=== PATIENT | female | born 1950 | race Hispanic/Latino ===

== ENCOUNTER 2017-02-10 07:04 | Day surgery (SDC) | payer MEDICARE ==
[2017-01-31 11:34] VITALS: BMI 23.6
[2017-02-10] MEDS ORDERED: Simethicone 40 mg/0.6 ml Liquid (30 ml) ONE (07:42)
[2017-02-10] MEDS ORDERED: Propofol 10 mg/ml Inj (20 ML) ONE (09:16)
[2017-02-10] MEDS ORDERED: Lidocaine 1% Inj (20ml) ONE (09:16)
[2017-02-10] MEDS ORDERED: Sodium Chloride 0.9% 1,000 ML IV SCH (09:45)
[2017-02-10 11:12] VITALS: BP 132/71; PULSE 52; RESP 18; TEMP 97.8; O2SAT 97
== END 2017-02-10 11:10 | disposition home or self-care (01) ==
LOC: ENDO 07:04
PROVIDERS: ATTEND Internal Medicine Gastroenterology
DX: K56.69 Other intestinal obstruction (principal); K28.9 Gastrojejunal ulcer, unspecified as acute or chronic, without hemorrhage or perforation
CPT/HCPCS: 43239; 43245; 88305; 88342; C1726; J2704; J7040 ×2

== ENCOUNTER 2017-04-11 14:56 | Inpatient (IN) | payer MEDICARE ==
[2017-04-11 15:40] VITALS: BMI 23.1
[2017-04-11] MEDS ORDERED: HYDROmorphone 1 mg/ml ISec ONE (15:43)
[2017-04-11] MEDS ORDERED: Sodium Chloride 0.9% 1,000 ML IV STA ×2 (15:45→21:03)
[2017-04-11] MEDS ORDERED: HYDROmorphone 1 mg/ml ISec IVP STA ×3 (15:45→20:10)
[2017-04-11 15:48] LABS: ADD MANUAL DIFF? NO
[2017-04-11 16:02] LABS: VENOUS BLOOD PH 7.33 (7.32-7.43)
[2017-04-11] MEDS ORDERED: HYDROmorphone 2 mg/ml ISec IVP STA (16:04)
[2017-04-11 16:07] LABS: BASO # 0.03 K/mm3 (0.0-2.0); BASO % 0.7 % (0.0-3.0); EOS # 0.1 (0.0-0.7); EOS % 2.3 % (1.5-5.0); GRAN # 2.85 (1.4-6.5); GRAN % 64.8 % (50.0-68.0); HEMATOCRIT 36.6 % (36.0-48.0); LYMPH % 23.5 % (22.0-35.0); MEAN CELL VOLUME 85.7 fL (80.0-105.0); MEAN CORPUSCULAR HEMOGLOBIN 27.2 pg (25.0-35.0); MEAN CORPUSCULAR HGB CONC 31.7 g/dl (31.0-37.0); MEAN PLATELET VOLUME 11.3 fl (7.0-11.0); MONO # 0.4 (0.1-0.6); MONO % 8.7 % (1.0-6.0); PLATELET COUNT 171 10^3/uL (120.0-450.0); RED CELL DISTRIBUTION WIDTH 16.6 % (11.5-14.5); WHITE BLOOD COUNT 4.4 10^3/ul (4.5-11.0)
--- NOTE | 2017-04-11 16:12 | ED PDOC ---
Arrival/HPI - General Chief Complaint: Abdominal Pain Time Seen by Provider: 04/11/17 15:01 Historian: Patient, Family - History of Present Illness Narrative History of Present Illness (Text): 04/11/17 20:19 Patient is a 67 yo female past medical history of gastric bypass presents to emergency department with history of sudden onset of epigastric/upper abdominal pain at approximately 8 this morning after eating serbian toast. She denies chest pain or shortness of breath. States pain radiates to her mid back. Denies pleuritic chest pain. Reports loose stools today. No bloody or dark stools. Denies fevers or chills. Pain is crampy, constant, progressively worse throughout the day. States she has not had an appetite, has only been able to drink liquids throughout the day. Past Medical History - Provider Review Nursing Documentation Reviewed: Yes - Tetanus Immunization Tetanus Immunization: Unknown - Reproductive Menopause: Yes - Cardiac Hx Pacemaker: No - Pulmonary Other/Comment: lung nodule, right lung, follows up every [address] young - Neurological Hx Paralysis: No - Hematological/Oncological Hx Blood Transfusions: No Hx Blood Transfusion Reaction: No - Musculoskeletal/Rheumatological Hx Musculoskeletal Disorders: Yes - Gastrointestinal Other/Comment: pt neal been following a liquid and baby food diet due to gastric ulcer as per dr jean. Pt had gastric bypass 2006, weighd 255 lbs, pt lost 100 lbs. has lost in the last 7 mfutso13s lbs and then. another 17, due to tx for gastric ulcer. pt needs to be on liquids and baby food for 2 months. pt needs to eat q2h - Psychiatric Hx Emotional Abuse: No Hx Physical Abuse: No Hx Substance Use: No - Surgical History Hx Gastric Bypass Surgery: Yes - Anesthesia Hx Anesthesia: Yes Hx Anesthesia Reactions: No Hx Malignant Hyperthermia: No - Suicidal Assessment Feels Threatened In Home Enviroment: No Family/Social History - Physician Review Nursing Documentation Reviewed: Yes Family/Social History: Unknown Family HX Smoking Status: Former Smoker Hx Alcohol Use: No Hx Substance Use: No Allergies/Home Meds Allergies/Adverse Reactions: Allergies hydromorphone HCl [From Dilaudid] Allergy (Severe, Verified 04/11/17 16:10) CHEST PRESSURE Home Medications: Home Meds Medication Instructions Recorded Confirmed ALPRAZolam [Xanax] 0.25 mg PO HS PRN 08/06/16 04/11/17 Cyanocobalamin (Vitamin B-12) 1 tab PO DAILY 08/06/16 04/11/17 [Vitamin B12] Lansoprazole [Prevacid] 30 mg PO BID 08/06/16 04/11/17 Multivitamin [One Daily] 1 tab PO DAILY 08/06/16 04/11/17 Cyanocobalamin [Vitamin B12 1000 1 ml SQ Q30D 12/12/16 04/11/17 mcg/ml Inj] Ferrous Sulfate [Emmanuel-Iron] 1 ml SL DAILY 12/12/16 04/11/17 oxyCODONE/Acetaminophen [Percocet 1 tab PO Q8H 12/12/16 04/11/17 5/325 mg Tab] Review of Systems - Review of Systems Constitutional: Fatigue. absent: Fevers Respiratory: absent: SOB, Cough Cardiovascular: absent: Chest Pain, Orthopnea, Syncope Gastrointestinal: Abdominal Pain, Diarrhea, Appetite Changes. absent: Constipation, Hematochezia, Hematemesis Genitourinary Female: absent: Dysuria, Frequency, Hematuria Musculoskeletal: Back Pain. absent: Neck Pain Skin: absent: Rash Neurological: absent: Headache, Dizziness, Focal Weakness Hemo/Lymphatic: absent: Easy Bleeding Physical Exam - Physical Exam Narrative Physical Exam (Text): Head: Atraumatic. Normocephalic. Eyes: PERRL. EOMI. Conjunctivae are not pale. ENT: Mucous membranes are dry. Oropharynx is clear and symmetric. Neck: Supple. Full ROM. No JVD. No lymphadenopathy. Cardiovascular: Regular rate. Regular rhythm. No murmurs, rubs, or gallops. Distal pulses are 2+ and symmetric. Pulmonary/Chest: No evidence of respiratory distress. Clear to auscultation bilaterally. No wheezing, rales or rhonchi. Abdominal: Soft and non-distended. Prior surgical scars noted. Moderate epigastric pain noted on palpation. No puslatile masses. Back: No CVA tenderness. No paraspinal tenderness. Extremities: No edema. No cyanosis. No clubbing. Full range of motion in all extremities. No calf tenderness. Intact distal pulses. Skin: Skin is pale. Neurological: Alert, awake, and oriented to person, place, time, and situation. Normal speech. Motor and sensory exam intact. Psychiatric: Good eye contact. Normal interaction, affect, and behavior. Vital Signs Reviewed: Yes Vital Signs Temp Pulse Resp BP Pulse Ox 04/11/17 22:00 53 L 04/11/17 21:00 55 L 18 150/75 100 04/11/17 19:00 51 L 18 145/69 100 04/11/17 17:00 53 L 18 133/65 97 04/11/17 15:11 97.9 F 56 L 18 152/61 H 100 Temperature: Afebrile Appearance: Positive for: Uncomfortable Pain Distress: Moderate Medical Decision Making ED Course and Treatment: Patient seen upon arrival. Family present in emergency department supplements history. On exam she has moderate/severe upper abdominal pain. No pulsatile masses. Prior CT chest and CT abdomen/pelvis reviewed. Given her history of gastric bypass and acute onset of pain, initial differential diagnosis included bowel obstruction/perforation. Surgery consulted immediately upon arrival and case reviewed with surgical garment inspector. Family requests Dr. Montoya for surgery. Gastroenterology also consulted. IV pain medication and iv fluids administered. Patient adamant that she has had dialudid with NO ADVERSE EFFECT despite record indicating allergy. THis was reviewed multiple times prior to administration. She received Dilaudid in ED with no adverse effect. EXAM: CT Abdomen and Pelvis With Intravenous Contrast FINDINGS: LOWER THORAX: No infiltrate seen in the lung bases. ABDOMEN: LIVER: Area of low density in the liver, abutting the falciform ligament, most compatible with focal fatty infiltration. GALLBLADDER AND BILE DUCTS: Diffuse biliary ductal dilatation. The common bile duct measures up to 1.1 cm in diameter, and there is also mild intrahepatic biliary ductal dilatation. No radiopaque common bile duct stones are visualized. Cholecystectomy clips are noted PANCREAS: No CT evidence of acute pancreatitis. SPLEEN: No acute abnormality of the spleen identified. ADRENALS: No acute abnormality of the adrenal glands identified. KIDNEYS AND URETERS: Tiny, nonobstructing left renal stone. No acute abnormality of the kidneys identified. STOMACH AND BOWEL: Findings highly suspicious for a proximal small bowel obstruction. There are multiple dilated small bowel loops seen, and there are multiple normal caliber to decompressed distal small bowel loops visualized. Transition point is seen, within a small bowel loop in the abdomen centrally, images 74-84 of series 2, where there is a change in caliber of the small bowel , followed by multiple normal caliber to decompressed small bowel loops. It is located at/near the the jejunojejunal anastomosis. No definite mass is identified at the transition point. There is no evidence of focal enteritis of the transition point. Postsurgical changes involving the stomach and left abdomen, with an appearance most compatible with previous gastric bypass surgery. No acute abnormality of the gastric pouch or excluded portion of the stomach identified. No acute abnormality of the colon identified. APPENDIX: Appendix is seen, and is within normal limits in appearance. PELVIS: BLADDER: No acute abnormality of the bladder identified. REPRODUCTIVE: Uterus is surgically absent. No evidence of large adnexal masses. ABDOMEN and PELVIS: INTRAPERITONEAL SPACE: Small amount of free fluid in the abdomen and pelvis. No evidence of free air. BONES/JOINTS: Bony structures appear demineralized. SOFT TISSUES: No acute abnormality of the visualized soft tissues is seen. VASCULATURE: No evidence of abdominal aortic aneurysm. No evidence of periaortic hemorrhage. LYMPH NODES: No evidence of diffuse lymphadenopathy. IMPRESSION: - Findings highly suspicious for a small bowel obstruction. Please see above for a full description. There is evidence of prior gastric bypass surgery. - Small amount of free fluid. - Diffuse biliary ductal dilatation. This may be related to the post cholecystectomy state. Recommend correlation with LFTs for laboratory evidence of biliary obstruction, and further workup as indicated. - See above for remaining findings. Dictated and Authenticated by: Elmira Oliver MD Surgery updated with patients exam as well as CT findings. Case discussed with diamante Hargrove for surgery. On re-exam, pain persistent but improved. Denies nausea. Given persistent pain requested emergent surgical evaluation and serial exams. IV fluids continued. Patient admitted for bowel obstruction. 04/28/17 23:14 - Lab Interpretations Lab Results: 04/11/17 15:35 04/11/17 15:35 Lab Results 04/11/17 15:53: pO2 33, VBG pH 7.33, VBG pCO2 50.0, VBG HCO3 26.4, VBG Total CO2 27.9, VBG O2 Sat (Calc) 65.9 H, VBG Base Excess 0.0, VBG Potassium 4.5, Glucose 99, Lactate 0.8, FiO2 21.0, Sodium 135.0, Chloride 109.0 H, Venous Blood Potassium 4.5 04/11/17 15:35: PT 10.6, INR 0.98, APTT 26.8 04/11/17 15:35: WBC 4.4 L, RBC 4.27, Hgb 11.6 L, Hct 36.6, MCV 85.7, MCH 27.2, MCHC 31.7, RDW 16.6 H, Plt Count 171, MPV 11.3 H, Gran % 64.8, Lymph % (Auto) 23.5, [place] % (Auto) 8.7 H, Eos % (Auto) 2.3, Baso % (Auto) 0.7, Gran # 2.85, Lymph # 1.0 L, [place] # 0.4, Eos # 0.1, Baso # 0.03 04/11/17 15:35: Sodium 137, Potassium 4.6, Chloride 101, Carbon Dioxide 29, Anion Gap 12, BUN 9, Creatinine 0.7, Est GFR ( Amer) > 60, Est GFR (Non- Af Amer) > 60, Random Glucose 98, Calcium 9.0, Total Bilirubin 0.6, AST 37, ALT 42, Alkaline Phosphatase 104, Lactate Dehydrogenase 575, Total Creatine Kinase 51, Troponin I < 0.01, Total Protein 6.5, Albumin 3.9, Globulin 2.7, Albumin/ Globulin Ratio 1.4, Amylase 82, Lipase 92 - RAD Interpretation Radiology Orders: 04/11/17 15:45 CHEST PORTABLE [RAD] Stat 04/11/17 16:51 ABD PELVIS PO & IV CONTRAST [CT] Stat - Medication Orders Current Medication Orders: Discontinued Medications Acetaminophen (Tylenol 325mg Tab) 650 mg PO Q6H PRN PRN Reason: Fever >100.4 F Last Admin: 04/12/17 22:39 Dose: 650 mg Famotidine (Pepcid) 20 mg IVP STAT STA Stop: 04/11/17 16:23 Last Admin: 04/11/17 20:15 Dose: 20 mg Hydromorphone HCl (Dilaudid) Confirm Administered Dose 1 mg .ROUTE .STK-MED ONE Stop: 04/11/17 15:44 Last Admin: 04/11/17 15:53 Dose: Hydromorphone HCl (Dilaudid) 1 mg IVP STAT STA Stop: 04/11/17 15:46 Last Admin: 04/11/17 15:52 Dose: 1 mg Re-Assess: MISHA Pain Assessment Document 04/11/17 16:52 JOL (Rec: 04/11/17 18:56 [id number]) Pain Reassessment Is this a pain reassessment? Yes Sleep Is patient sleeping during reassessment? No Presence of Pain Presence of Pain Yes Hydromorphone HCl (Dilaudid) 2 mg IVP STAT STA Stop: 04/11/17 16:05 Last Admin: 04/11/17 16:11 Dose: 2 mg Re-Assess: [facility] Pain Assessment Document 04/11/17 17:11 JO (Rec: 04/11/17 18:56 [id number]) Pain Reassessment Is this a pain reassessment? Yes Sleep Is patient sleeping during reassessment? No Presence of Pain Presence of Pain Yes Hydromorphone HCl (Dilaudid) 1 mg IVP STAT STA Stop: 04/11/17 17:54 Last Admin: 04/11/17 18:05 Dose: 1 mg Re-Assess: [facility] Pain Assessment Document 04/11/17 19:05 JO (Rec: 04/11/17 20:15 [id number]) Pain Reassessment Is this a pain reassessment? Yes Sleep Is patient sleeping during reassessment? No Presence of Pain Presence of Pain Yes Hydromorphone HCl (Dilaudid) 1 mg IVP STAT STA Stop: 04/11/17 20:11 Last Admin: 04/11/17 20:15 Dose: 1 mg Re-Assess: [facility] Pain Assessment Document 04/11/17 21:15 JO (Rec: 04/11/17 21:16 [id number]) Pain Reassessment Is this a pain reassessment? Yes Sleep Is patient sleeping during reassessment? No Presence of Pain Presence of Pain Yes Hydromorphone HCl (Dilaudid) 1 mg IVP Q4H PRN PRN Reason: Pain, moderate (4-7) Last Admin: 04/13/17 22:37 Dose: 1 mg Sodium Chloride (Sodium Chloride 0.9%) 1,000 mls @ 1,000 mls/hr IV .Q1H STA Stop: 04/11/17 16:44 Last Admin: 04/11/17 15:53 Dose: 1,000 mls/hr Sodium Chloride (Sodium Chloride 0.9%) 1,000 mls @ 100 mls/hr IV .Q10H [facility] Last Admin: 04/13/17 05:48 Dose: 100 mls/hr Sodium Chloride (Sodium Chloride 0.9%) 1,000 mls @ 1,000 mls/hr IV .Q1H STA Stop: 04/11/17 22:02 Last Admin: 04/11/17 21:28 Dose: Iohexol (Omnipaque 240 (50 Ml)) Confirm Administered Dose 50 ml .ROUTE .STK-MED ONE Stop: 04/11/17 16:53 Iohexol (Omnipaque 350 100 Ml) Confirm Administered Dose 350 mg .ROUTE .STK-MED ONE Stop: 04/11/17 19:00 Metronidazole (Flagyl) 250 mg PO Q6H VI PRN Reason: Protocol Last Admin: 04/14/17 10:00 Dose: 250 mg Ondansetron HCl (Zofran Inj) 4 mg IVP Q4H PRN PRN Reason: Nausea/Vomiting Pantoprazole Sodium (Protonix Inj) 40 mg IVP STAT STA Stop: 04/11/17 21:17 Last Admin: 04/11/17 21:51 Dose: 40 mg Pantoprazole Sodium (Protonix Inj) 40 mg IVP DAILY [facility] Last Admin: 04/14/17 09:59 Dose: 40 mg Disposition/Present on Arrival - Present on Arrival Any Indicators Present on Arrival: No History of DVT/PE: No History of Uncontrolled Diabetes: No Urinary Catheter: No History of Decub. Ulcer: No History Surgical Site Infection Following: None - Disposition Have Diagnosis and Disposition been Completed?: Yes Diagnosis: Bowel obstruction Disposition: HOSPITALIZED Disposition Time: 16:00 Patient Plan: Admission Condition: SERIOUS
[2017-04-11 16:13] LABS: ALB/GLOB RATIO 1.4 (1.1-1.8); ALKALINE PHOSPHATASE 104 U/L (38-133); ALT/SGPT 42 U/L (7-56); AMYLASE 82 U/L (35-125); AST/SGOT 37 U/L (15-39); BILIRUBIN,TOTAL 0.6 mg/dL (0.2-1.3); BLOOD UREA NITROGEN 9 mg/dL (7-21); CARBON DIOXIDE 29 mmol/L (21-33); CHLORIDE 101 mmol/L (98-107); GFR AFRICAN-AMERICAN > 60; GLUCOSE,RANDOM 98 mg/dL (70-110); LIPASE 92 U/L (23-300); POTASSIUM 4.6 mmol/L (3.6-5.0); SODIUM 137 mmol/L (132-148); TOTAL PROTEIN 6.5 g/dL (5.8-8.3)
[2017-04-11 16:15] LABS: INR 0.98 (0.93-1.08); PARTIAL THROMBOPLASTIN TIME 26.8 Seconds (23.7-30.8)
[2017-04-11 16:26] LABS: TROPONIN I < 0.01 ng/mL
[2017-04-11] MEDS ORDERED: Iohexol 240 (50 ml) ONE (16:52)
--- NOTE | 2017-04-11 17:12 | CP.PCM.CON ---
History of Present Illness - History of Present Illness History of Present Illness: Gen Sx: Dr Stratton CC: epigastric pain Pt is a 67F well known to surgical service. Pt has history of gastric bypass w / cholecystectomy in 2006. 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 She has received multiple endoscopic dilatations, and most recently had a laparoscopic resection of the ulcer segments of her jejuno-jejunal anastamosis. This surgery was done at [facility] by her original bariatric surgeon. Pt presents today because shortly after eating a piece of thai toast, she developed sudden onset epigastric pain, 10/10, radiating through to the back. Pain has been persistent since initial onset and has not subsided. She denies any nausea or vomiting, but feels if she tried to take even a sip of water she would vomit. Has been having bowel movements regularly though she admits to 3 episodes of diarrhea within past 24 hours. Pt denies any recent EtOH intake. She has been eating well since her operation. No other acute complaints. Review of Systems - Review of Systems All systems: reviewed and no additional remarkable complaints except (as per hpi ) Past Patient History - Tetanus Immunizations Tetanus Immunization: Unknown - Past Social History Smoking Status: Former Smoker - CARDIAC Hx Pacemaker: No - PULMONARY Other/Comment: lung nodule, right lung, follows up every [address] young - NEUROLOGICAL Hx Paralysis: No - HEMATOLOGICAL/ONCOLOGICAL Hx Blood Transfusions: No Hx Blood Transfusion Reaction: No - MUSCULOSKELETAL/RHEUMATOLOGICAL Hx Musculoskeletal Disorders: Yes - GASTROINTESTINAL Other/Comment: pt neal been following a liquid and baby food diet due to gastric ulcer as per dr zamarripa. Pt had gastric bypass 2006, weighd 255 lbs, pt lost 100 lbs. has lost in the last 7 eepoep21h lbs and then. another 17, due to tx for gastric ulcer. pt needs to be on liquids and baby food for 2 months. pt needs to eat q2h - PSYCHIATRIC Hx Emotional Abuse: No Hx Physical Abuse: No Hx Substance Use: No - SURGICAL HISTORY Hx Gastric Bypass Surgery: Yes - ANESTHESIA Hx Anesthesia: Yes Hx Anesthesia Reactions: No Hx Malignant Hyperthermia: No Meds Allergies/Adverse Reactions: Allergies Allergy/AdvReac Type Severity Reaction Status Date / Time hydromorphone HCl Allergy Severe CHEST Verified 04/11/17 16:10 [From Dilaudid] PRESSURE Physical Exam - Constitutional Appears: Non-toxic, No Acute Distress - Head Exam Head Exam: NORMOCEPHALIC - Eye Exam Eye Exam: absent: Scleral icterus - ENT Exam ENT Exam: Mucous Membranes Moist - Respiratory Exam Respiratory Exam: NORMAL BREATHING PATTERN. absent: Accessory Muscle Use, Respiratory Distress - Cardiovascular Exam Cardiovascular Exam: REGULAR RHYTHM. absent: Tachycardia - GI/Abdominal Exam GI & Abdominal Exam: Soft, Tenderness (epigastric). absent: Distended, Firm, Guarding, Hernia, Rigid Additional comments: laparoscopy incisions healing well - Extremities Exam Extremities exam: Negative for: pedal edema - Back Exam Back exam: absent: CVA tenderness (L), CVA tenderness (R) - Neurological Exam Neurological exam: Alert, Oriented x3 - Psychiatric Exam Psychiatric exam: Normal Affect, Normal Mood - Skin Skin Exam: Normal Color, Warm Results - Vital Signs Recent Vital Signs: Last Vital Signs Temp 97.9 F 04/11/17 15:11 Pulse 56 L 04/11/17 15:11 Resp 18 04/11/17 15:11 BP 152/61 H 04/11/17 15:11 Pulse Ox 100 04/11/17 15:11 - Labs Result Diagrams: 04/11/17 15:35 04/11/17 15:35 Labs: Laboratory Results - last 24 hr 04/11/17 04/11/17 04/11/17 15:35 15:35 15:35 WBC 4.4 L RBC 4.27 Hgb 11.6 L Hct 36.6 MCV 85.7 MCH 27.2 MCHC 31.7 RDW 16.6 H Plt Count 171 MPV 11.3 H Gran % 64.8 Lymph % (Auto) 23.5 [place] % (Auto) 8.7 H Eos % (Auto) 2.3 Baso % (Auto) 0.7 Gran # 2.85 Lymph # 1.0 L [place] # 0.4 Eos # 0.1 Baso # 0.03 PT 10.6 INR 0.98 APTT 26.8 pO2 VBG pH VBG pCO2 VBG HCO3 VBG Total CO2 VBG O2 Sat (Calc) VBG Base Excess VBG Potassium Glucose Lactate FiO2 Sodium 137 Potassium 4.6 Chloride 101 Carbon Dioxide 29 Anion Gap 12 BUN 9 Creatinine 0.7 Est GFR ( Amer) > 60 Est GFR (Non-Af Amer) > 60 Random Glucose 98 Calcium 9.0 Total Bilirubin 0.6 AST 37 ALT 42 Alkaline Phosphatase 104 Lactate Dehydrogenase 575 Total Creatine Kinase 51 Troponin I < 0.01 Total Protein 6.5 Albumin 3.9 Globulin 2.7 Albumin/Globulin Ratio 1.4 Amylase 82 Lipase 92 Venous Blood Potassium 04/11/17 15:53 WBC RBC Hgb Hct MCV MCH MCHC RDW Plt Count MPV Gran % Lymph % (Auto) [place] % (Auto) Eos % (Auto) Baso % (Auto) Gran # Lymph # [place] # Eos # Baso # PT INR APTT pO2 33 VBG pH 7.33 VBG pCO2 50.0 VBG HCO3 26.4 VBG Total CO2 27.9 VBG O2 Sat (Calc) 65.9 H VBG Base Excess 0.0 VBG Potassium 4.5 Glucose 99 Lactate 0.8 FiO2 21.0 Sodium 135.0 Potassium Chloride 109.0 H Carbon Dioxide Anion Gap BUN Creatinine Est GFR ( Amer) Est GFR (Non-Af Amer) Random Glucose Calcium Total Bilirubin AST ALT Alkaline Phosphatase Lactate Dehydrogenase Total Creatine Kinase Troponin I Total Protein Albumin Globulin Albumin/Globulin Ratio Amylase Lipase Venous Blood Potassium 4.5 Assessment & Plan - Assessment and Plan (Free Text) Assessment: 67F w/ gastric bypass now presents with epigastric pain Plan: r/o cardiac etiology NPO Iv fluids CXR shows no acute free air recommend CT abd/pel will f/u results recc consult GI Dr Zamarripa who is familiar with pt will cont to follow d/w Dr Chayito Childress, , PGY2 - Date & Time Date: 04/11/17 Time: 17:16
[2017-04-11] MEDS ORDERED: Iohexol 350 MG/100 ML VIAL ONE (18:59)
[2017-04-11] MEDS: Sodium Chloride 0.9% 1,000 ML IV SCH (21:00)
--- NOTE | 2017-04-11 21:05 | CT ---
EXAM: CT Abdomen and Pelvis With Intravenous Contrast CLINICAL HISTORY: 67 years old, female; Pain; Abdominal pain; Localized; Upper; Prior surgery; Surgery type: Gastric bypass; Additional info: HX of gastric bypass, upper abdominal pain TECHNIQUE: Axial computed tomography images of the abdomen and pelvis with intravenous contrast. This CT exam was performed using one or more of the following dose reduction techniques: automated exposure control, adjustment of the mA and/or kV according to patient size, and/or use of iterative reconstruction technique. Coronal and sagittal reformatted images were created and reviewed. CONTRAST: 100 mL of OMNIPAQUE administered intravenously. EXAM DATE/TIME: 04/11/2017 4:51 PM COMPARISON: Prior CT abdomen and pelvis of 08/15/2016 FINDINGS: LOWER THORAX: No infiltrate seen in the lung bases. ABDOMEN: LIVER: Area of low density in the liver, abutting the falciform ligament, most compatible with focal fatty infiltration. GALLBLADDER AND BILE DUCTS: Diffuse biliary ductal dilatation. The common bile duct measures up to 1.1 cm in diameter, and there is also mild intrahepatic biliary ductal dilatation. No radiopaque common bile duct stones are visualized. Cholecystectomy clips are noted PANCREAS: No CT evidence of acute pancreatitis. SPLEEN: No acute abnormality of the spleen identified. ADRENALS: No acute abnormality of the adrenal glands identified. KIDNEYS AND URETERS: Tiny, nonobstructing left renal stone. No acute abnormality of the kidneys identified. STOMACH AND BOWEL: Findings highly suspicious for a proximal small bowel obstruction. There are multiple dilated small bowel loops seen, and there are multiple normal caliber to decompressed distal small bowel loops visualized. Transition point is seen, within a small bowel loop in the abdomen centrally, images 74-84 of series 2, where there is a change in caliber of the small bowel, followed by multiple normal caliber to decompressed small bowel loops. It is located at/near the the jejunojejunal anastomosis. No definite mass is identified at the transition point. There is no evidence of focal enteritis of the transition point. Postsurgical changes involving the stomach and left abdomen, with an appearance most compatible with previous gastric bypass surgery. No acute abnormality of the gastric pouch or excluded portion of the stomach identified. No acute abnormality of the colon identified. APPENDIX: Appendix is seen, and is within normal limits in appearance. PELVIS: BLADDER: No acute abnormality of the bladder identified. REPRODUCTIVE: Uterus is surgically absent. No evidence of large adnexal masses. ABDOMEN and PELVIS: INTRAPERITONEAL SPACE: Small amount of free fluid in the abdomen and pelvis. No evidence of free air. BONES/JOINTS: Bony structures appear demineralized. SOFT TISSUES: No acute abnormality of the visualized soft tissues is seen. VASCULATURE: No evidence of abdominal aortic aneurysm. No evidence of periaortic hemorrhage. LYMPH NODES: No evidence of diffuse lymphadenopathy. IMPRESSION: - Findings highly suspicious for a small bowel obstruction. Please see above for a full description. There is evidence of prior gastric bypass surgery. - Small amount of free fluid. - Diffuse biliary ductal dilatation. This may be related to the post cholecystectomy state. Recommend correlation with LFTs for laboratory evidence of biliary obstruction, and further workup as indicated. - See above for remaining findings.
--- NOTE | 2017-04-11 21:53 | CARD ---
APPROVED REPORT EKG Measurement Heart [id number] MD [id number] <Conclusion> Sinus bradycardia Otherwise normal ECG
--- NOTE | 2017-04-11 23:22 | CON ---
DATE: 04/11/2017 REASON FOR CONSULTATION: Abdominal pain. HISTORY OF PRESENT ILLNESS: This 67-year-old patient was earlier seen in the Emergency Room. Discus sed with the patient's family and also with Dr. Thompson, the ER physician. This patient had a history of gastric bypass about a month ago, had revision of the anastomosis done. 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 The patient had repeated dilations done in the pas t and was evaluated by the bariatric surgeon and had revision of these anastomotic areas done. As pe r the patient, she was doing very good for the last month. She yesterday had a tuna sandwich and aft er that she had developed diarrhea a few episodes and also epigastric pain, sometimes radiating to th e back. Feeling nauseous, but did not throw up. No bleeding per rectum. No fever. The patient was improving, was getting better, but today, she had Hungarian toast. After that, the worsening of the pa in happened. She came to the Emergency Room. The patient at the time of examination, the patient di d receive some pain medication. The patient was comfortable on examination. PAST MEDICAL HISTORY: Positive for status post cholecystectomy and history of gastric bypass. SOCIAL HISTORY: Denies smoking, no alcohol. REVIEW OF SYSTEMS: Positive as above. Other systems reviewed and negative. SOCIAL HISTORY: She was an ex-smoker. Denies alcohol use. PHYSICAL EXAMINATION: VITAL SIGNS: Pulse 56, blood pressure 152/61, respirations 18, and O2 saturation 100%. HEENT: Atraumatic, anicteric. NECK: Supple. HEART: S1, S2 heard. LUNGS: Bilateral air entry present. ABDOMEN: Soft. There is tenderness present in the epigastric area. No rebound or guarding. EXTREMITIES: No edema. No cyanosis. NEUROLOGIC: Alert, oriented. Moves all the extremities. No focal deficit. LABORATORY DATA: Hemoglobin 11.6, hematocrit 36.6, WBC 4.4, platelets 171. Chemistry unremarkable. IMPRESSION: This 67-year-old patient who about a month ago had a revision of these bariatric surgery , gastric gastrojejunal anastomosis revision. The patient did have ulcers with stricture at the anas tomosis. The patient was doing well until this episode. Rule out small-bowel obstruction, rule out gastroenteritis. Would recommend a CT scan of the abdomen and pelvis with p.o. contrast. We will se nd stool for culture. We will consider empiric antibiotic coverage. The patient will have a surgica l evaluation. Close surgical monitoring. Hydration. Thank you very much for allowing us to participate in the care of the patient. ADDENDUM: I did discuss with the ER physician, Dr. Thompson. The CT was reviewed suggestive of small-bow el obstruction. The patient planned to be evaluated by Dr. Josue garcia and needs close monitoring . I informed the floor that because she is on the pain medication if there is any concern, the nurse was advised to discuss with the surgical team. Thank you very much for allowing us to participate in the care of the patient. Jackie Zamarripa MD cc: [id number] TT: 04/11/2017 23:21:33 Confirmation # [id number] Dictation # [id number] aury
[2017-04-11] MEDS: HYDROmorphone 1 mg/ml ISec IVP PRN (23:36)
[2017-04-11 23:48] LABS: VENOUS BLOOD GAS BASE EXCESS 2.2 mmol/L (0.0-2.0); VENOUS BLOOD PH 7.34 (7.32-7.43)
[2017-04-12] MEDS: HYDROmorphone 1 mg/ml ISec IVP PRN ×5 (04:07→23:11)
--- NOTE | 2017-04-12 06:35 | CP.PCM.PN ---
Subjective - Date & Time of Evaluation Date of Evaluation: 04/12/17 Time of Evaluation: 07:10 - Subjective Subjective: Pt s/e at bedside this AM. Pain is feeling improved since yesterday with no nausea, vomiting, diarrhea, or fevers. Patient states that she feels like she needs to have a BM but is not able to pass anything. Encouraged her not to use great effort to try to pass the stool and encouraged ambulation Objective - Vital Signs/Intake and Output Vital Signs (last 24 hours): Temp Pulse Resp BP Pulse Ox 97.9 F 55 L 18 150/75 100 04/11/17 15:11 04/11/17 21:00 04/11/17 21:00 04/11/17 21:00 04/11/17 21:00 Intake and Output: 04/11/17 04/12/17 18:59 06:59 Intake Total 0 Output Total 400 Balance -400 - Medications Medications: Current Medications Hydromorphone HCl (Dilaudid) 1 mg IVP Q4H PRN PRN Reason: Pain, moderate (4-7) Last Admin: 04/12/17 04:07 Dose: 1 mg Sodium Chloride (Sodium Chloride 0.9%) 1,000 mls @ 100 mls/hr IV .Q10H VI Last Admin: 04/11/17 21:00 Dose: 100 mls/hr Ondansetron HCl (Zofran Inj) 4 mg IVP Q4H PRN PRN Reason: Nausea/Vomiting Pantoprazole Sodium (Protonix Inj) 40 mg IVP DAILY VI - Labs Labs: PT 10.6 Seconds (9.9-11.8) 04/11/17 15:35 INR 0.98 (0.93-1.08) 04/11/17 15:35 APTT 26.8 Seconds (23.7-30.8) 04/11/17 15:35 - Constitutional Appears: Well, Non-toxic, No Acute Distress - Head Exam Head Exam: ATRAUMATIC, NORMOCEPHALIC - Eye Exam Eye Exam: EOMI, Normal appearance. absent: Conjunctival injection, Scleral icterus - ENT Exam ENT Exam: Mucous Membranes Moist, Normal Oropharynx - Neck Exam Neck Exam: Full ROM - Respiratory Exam Respiratory Exam: NORMAL BREATHING PATTERN. absent: Accessory Muscle Use, Respiratory Distress - Cardiovascular Exam Cardiovascular Exam: RRR - GI/Abdominal Exam GI & Abdominal Exam: Soft, Tenderness (moderate tenderness in the upper quadrants BL and epigastrium ). absent: Distended - Extremities Exam Extremities Exam: absent: Calf Tenderness, Pedal Edema, Tenderness - Neurological Exam Neurological Exam: Alert, Awake, Oriented x3 - Psychiatric Exam Psychiatric exam: Normal Affect, Normal Mood - Skin Skin Exam: Dry, Intact, Normal Color, Warm Assessment and Plan - Assessment and Plan (Free Text) Assessment: 67F with PSH including Rsoa-en-y gastric bypass 10 years ago with 8 months of peptic/marginal ulcers and stricture at jejunojejunal anastamosis refractory to multiple dilations who is 3 week s/p laparoscopic revision of jejunojejunal junction at [facility] who presented to the ED last night for severe epigastric abdominal pain that radiates to the right lower back after eating toast CT: proximal SBO with multiple dilated small bowel loops with distal decompression with transition point near the anastamosis. Fecalization of Small bowel contents proximal to anastamosis. No free air or signs of anastamotic leak , volvulus, or internal hernia patient clinically doing well Abdominal exam soft, non-distended Lactic acid WNL, AM labs stable UA positive for small leukocyte esterase and 5-10 WBC, no blood Plan: f/u abdominal flat plate XR this am continue NPO, may advance to CLD if abdominal flat plate is unconcerning and if she has return of Bowel movements Continue analgesia f/u C. diff stool, urine culture No antibiotics at this time Will consider NGT placement if nausea and vomiting but try to avoid d/t aberrant anatomy and recent surgery NS @100cc/h F/u GI recs Discussed with Dr. Josue Ocampo, PGY1
[2017-04-12 07:30] LABS: URINE BILIRUBIN NEGATIVE (NEGATIVE); URINE BLOOD NEGATIVE (NEGATIVE); URINE GLUCOSE (UA) NEGATIVE (NEGATIVE); URINE KETONE NEGATIVE (NEGATIVE); URINE LEUKOCYTE ESTERASE SMALL Leu/uL (NEGATIVE); URINE PROTEIN NEGATIVE mg/dL (<30 mg/dL); URINE UROBILINOGEN 0.2 E.U./dL (<1 E.U./dL)
[2017-04-12 07:31] LABS: URINE APPEARANCE CLEAR (CLEAR); URINE COLOR YELLOW (YELLOW)
[2017-04-12 07:44] LABS: URINE BACTERIA FEW (NEG); URINE EPITHELIAL CELLS 0 - 2 /hpf (0-5); URINE RBC NEGATIVE /hpf (0-2)
[2017-04-12 09:03] LABS: ADD MANUAL DIFF? NO
[2017-04-12 09:09] LABS: BASO # 0.03 K/mm3 (0.0-2.0); BASO % 0.9 % (0.0-3.0); EOS # 0.1 (0.0-0.7); EOS % 3.6 % (1.5-5.0); GRAN # 2.21 (1.4-6.5); GRAN % 65.9 % (50.0-68.0); HEMATOCRIT 34.6 % (36.0-48.0); LYMPH # 0.7 (1.2-3.4); LYMPH % 21.2 % (22.0-35.0); MEAN CELL VOLUME 86.3 fL (80.0-105.0); MEAN CORPUSCULAR HEMOGLOBIN 27.4 pg (25.0-35.0); MEAN CORPUSCULAR HGB CONC 31.8 g/dl (31.0-37.0); MEAN PLATELET VOLUME 11.3 fl (7.0-11.0); MONO # 0.3 (0.1-0.6); MONO % 8.4 % (1.0-6.0); PLATELET COUNT 145 10^3/uL (120.0-450.0); RED CELL DISTRIBUTION WIDTH 16.7 % (11.5-14.5); WHITE BLOOD COUNT 3.4 10^3/ul (4.5-11.0)
[2017-04-12 09:33] LABS: ALB/GLOB RATIO 1.5 (1.1-1.8); ALKALINE PHOSPHATASE 98 U/L (38-133); ALT/SGPT 43 U/L (7-56); AST/SGOT 38 U/L (15-39); BILIRUBIN,TOTAL 0.6 mg/dL (0.2-1.3); BLOOD UREA NITROGEN 8 mg/dL (7-21); CALCIUM 8.7 mg/dL (8.4-10.5); CARBON DIOXIDE 28 mmol/L (21-33); CHLORIDE 105 mmol/L (98-107); GFR AFRICAN-AMERICAN > 60; GLUCOSE,RANDOM 90 mg/dL (70-110); POTASSIUM 4.4 mmol/L (3.6-5.0); SODIUM 137 mmol/L (132-148); TOTAL PROTEIN 5.7 g/dL (5.8-8.3)
[2017-04-12] MEDS: Sodium Chloride 0.9% 1,000 ML IV SCH ×3 (11:54→21:03)
--- NOTE | 2017-04-12 12:17 | RAD ---
HISTORY: upper abdominal pain COMPARISON: 02/19/2017 FINDINGS: LUNGS: No active pulmonary disease. Calcified granuloma right upper lobe. PLEURA: No significant pleural effusion identified, no pneumothorax apparent. CARDIOVASCULAR: Normal. OSSEOUS STRUCTURES: No significant abnormalities. VISUALIZED UPPER ABDOMEN: Normal. OTHER FINDINGS: None. IMPRESSION: No active disease.
--- NOTE | 2017-04-12 17:58 | RAD ---
HISTORY: re-eval for SBO/perforation COMPARISON: CT abdomen/ pelvis 04/11/2017 FINDINGS: BOWEL: No abnormally dilated small bowel loops. Oral contrast seen within small bowel on CT examination of previous day is now seen within the left colon. No hepatic or splenic enlargement. Status post cholecystectomy. No masses or abnormal intra-abdominal calcifications. BONES: Normal. OTHER FINDINGS: None. IMPRESSION: Unremarkable abdominal bowel gas pattern. No evidence of small-bowel obstruction.
--- NOTE | 2017-04-12 20:57 | HP ---
HISTORY OF PRESENT ILLNESS: The patient is a 67-year-old who was seen by me in the office on afternoon when she came for her regular checkup; she was in good health. She stated on her way shonna logan she brought 1 tuna fish sandwich from [facility]. Her and her grandson ate the same thing but, after a couple of hours, she started to have abdominal discomfort, cramping pain, nausea, vomiting, diarrhe a. She threw up all night and yesterday morning. She made herself Lebanese toast and after she ate sh desmond started to have significant abdominal pain. She called her surgeon who recently had revision of he r gastric bypass who advised her to go to Emergency Room. She states since she is here, her pain see med to have improved and her vomiting has subsided. She still has abdominal discomfort, but not as b ad as before. PAST MEDICAL HISTORY: Significant for gastric bypass in the past. She had esophageal stricture that was intermittently being dilated by Dr. Zamarripa, but after the last procedure he recommended her to follow up with her surgeon who did gastric bypass surgery to revise it, and she had the surgery done early 03/2017. She also has a significant past medical history of cholecystectomy. SOCIAL HISTORY: She does not smoke or drink or use any drugs. ALLERGIES: SHE IS ALLERGIC TO HYDROMORPHONE. MEDICATIONS AT HOME: She is on Protonix. She is on multivitamin, Prevacid 30 mg twice a day, ferrou s gluconate 1 tablet daily. She is on B12 once a week. She is on Xanax 0.25 b.i.d. p.r.n. SOCIAL HISTORY: She lives by herself. She has 2 supportive daughters who lives in the same house. PHYSICAL EXAMINATION: GENERAL: She is awake and alert, communicative. VITAL SIGNS: She is afebrile, pulse 51, respirations 20, blood pressure 126/72. LUNGS: Bilateral fair airflow, no rhonchi or crackle. HEART: S1, S2 audible. ABDOMEN: ____ She has slight discomfort in the epigastrium and in the periumbilical area, but no haydee ound, no guarding. She has sluggish bowel sounds. NEUROLOGIC: She is awake and alert, communicative, ambulatory. EXTREMITIES: Bilateral legs, no edema. LABORATORY DATA: WBC 3.4, hemoglobin 11, hematocrit 34.6, platelets 145. PT 10.6, INR 0.98. Chemis try: Sodium 137, potassium 4.4, chloride 105, CO2 28, BUN 8, creatinine 0.6, blood sugar ____. LFTs are within normal limits. Urinalysis shows small leukocyte. She had CT scan of the abdomen and pel vis done that shows questionable small bowel obstruction, diffuse biliary ductal dilatation and statu s post cholecystectomy. ASSESSMENT: 1. Gastroenteritis. 2. Partial small bowel obstruction. 3. Chronic anemia. 4. Status post gastric bypass. PLAN: At this point, will treat the patient conservatively. Surgical input noted and appreciated. There is no plan for surgical intervention. Will continue her on Protonix, IV fluid. Started on rodríguez ar liquid. If she tolerates, will advance diet in the a.m. and may discharge if her pain improves. Ana Evans MD cc: [phone] TT: 04/12/2017 20:56:15 mn
--- NOTE | 2017-04-12 21:27 | CP.PCM.PN ---
<RaymundoJaden - Last Filed: 04/12/17 21:23> Subjective - Date & Time of Evaluation Date of Evaluation: 04/12/17 Time of Evaluation: 21:23 - Subjective Subjective: GI for Dr. Zamarripa Pt s&eAster VILLAFANA. No BM. Had diarrhea yesterday. Denies F/C/N/V/CP/SOB. Pain controlled. Objective - Vital Signs/Intake and Output Vital Signs (last 24 hours): Temp Pulse Resp BP Pulse Ox 97.3 F L 52 L 18 125/71 98 04/12/17 17:51 04/12/17 17:51 04/12/17 17:51 04/12/17 17:51 04/12/17 06:00 - Medications Medications: Current Medications Acetaminophen (Tylenol 325mg Tab) 650 mg PO Q6H PRN PRN Reason: Fever >100.4 F Hydromorphone HCl (Dilaudid) 1 mg IVP Q4H PRN PRN Reason: Pain, moderate (4-7) Last Admin: 04/12/17 18:51 Dose: 1 mg Sodium Chloride (Sodium Chloride 0.9%) 1,000 mls @ 100 mls/hr IV .Q10H VI Last Admin: 04/12/17 21:03 Dose: 100 mls/hr Ondansetron HCl (Zofran Inj) 4 mg IVP Q4H PRN PRN Reason: Nausea/Vomiting Pantoprazole Sodium (Protonix Inj) 40 mg IVP DAILY [facility] Last Admin: 04/12/17 09:05 Dose: Not Given - Labs Labs: 04/12/17 09:03 04/12/17 09:03 PT 10.6 Seconds (9.9-11.8) 04/11/17 15:35 INR 0.98 (0.93-1.08) 04/11/17 15:35 APTT 26.8 Seconds (23.7-30.8) 04/11/17 15:35 - Constitutional Appears: Well, No Acute Distress - Head Exam Head Exam: ATRAUMATIC, NORMAL INSPECTION, NORMOCEPHALIC - Eye Exam Eye Exam: EOMI, Normal appearance, PERRL Pupil Exam: NORMAL ACCOMODATION, PERRL - ENT Exam ENT Exam: Mucous Membranes Moist, Normal Exam - Neck Exam Neck Exam: Full ROM, Normal Inspection. absent: Lymphadenopathy - Respiratory Exam Respiratory Exam: Clear to Ausculation Bilateral, NORMAL BREATHING PATTERN - Cardiovascular Exam Cardiovascular Exam: REGULAR RHYTHM, +S1, +S2. absent: Murmur - GI/Abdominal Exam GI & Abdominal Exam: Soft, Tenderness, Normal Bowel Sounds - Extremities Exam Extremities Exam: Full ROM, Normal Inspection - Back Exam Back Exam: NORMAL INSPECTION - Neurological Exam Neurological Exam: Alert, Awake, CN II-XII Intact, Normal Gait, Oriented x3 - Psychiatric Exam Psychiatric exam: Normal Affect, Normal Mood - Skin Skin Exam: Dry, Intact, Normal Color, Warm Assessment and Plan - Assessment and Plan (Free Text) Assessment: 67 w psh of gastric bypass and revision came with SBO CT SBO at anastomosis AXR: contrast shown in the rectum. Partial obstruction: Pain controlled, no N/V -Advance diet as tolerated. -f/u C-diff -We will continue to follow closely DW Dr. Zamarripa <Jackie Zamarripa V - Last Filed: 06/04/17 14:04> Objective - Vital Signs/Intake and Output Vital Signs (last 24 hours): Temp Pulse Resp BP Pulse Ox 98.0 F 52 L 16 122/73 97 04/14/17 07:30 04/14/17 07:30 04/14/17 07:30 04/14/17 07:30 04/14/17 07:30 - Labs Labs: 04/14/17 07:10 04/14/17 07:10 PT 10.6 Seconds (9.9-11.8) 04/11/17 15:35 INR 0.98 (0.93-1.08) 04/11/17 15:35 APTT 26.8 Seconds (23.7-30.8) 04/11/17 15:35 - GI/Abdominal Exam GI & Abdominal Exam: Soft, Tenderness, Normal Bowel Sounds. absent: Guarding, Rebound Assessment and Plan - Assessment and Plan (Free Text) Assessment: The patient was seen and examined at bedside. Medical records, lab studies, imagings were reviewed. Last 24 hours events reviewed. Agreed with the above findings and treatment plan as outlined in 's note.
[2017-04-13] MEDS: Sodium Chloride 0.9% 1,000 ML IV SCH ×2 (03:14→05:48)
[2017-04-13 07:23] LABS: ADD MANUAL DIFF? NO
[2017-04-13 07:35] LABS: BASO # 0.02 K/mm3 (0.0-2.0); BASO % 0.8 % (0.0-3.0); EOS # 0.1 (0.0-0.7); GRAN % 58.4 % (50.0-68.0); LYMPH # 0.7 (1.2-3.4); LYMPH % 27.9 % (22.0-35.0); MEAN CORPUSCULAR HEMOGLOBIN 27.3 pg (25.0-35.0); MEAN CORPUSCULAR HGB CONC 31.7 g/dl (31.0-37.0); MEAN PLATELET VOLUME 11.3 fl (7.0-11.0); MONO # 0.2 (0.1-0.6); MONO % 7.9 % (1.0-6.0); PLATELET COUNT 133 10^3/uL (120.0-450.0); RED CELL DISTRIBUTION WIDTH 16.7 % (11.5-14.5)
[2017-04-13 07:46] LABS: WHITE BLOOD COUNT 2.4 10^3/ul (4.5-11.0)
[2017-04-13 07:49] LABS: ALB/GLOB RATIO 1.3 (1.1-1.8); ALKALINE PHOSPHATASE 97 U/L (38-133); ALT/SGPT 47 U/L (7-56); AST/SGOT 46 U/L (15-39); BILIRUBIN,TOTAL 0.6 mg/dL (0.2-1.3); BLOOD UREA NITROGEN 5 mg/dL (7-21); CALCIUM 8.4 mg/dL (8.4-10.5); CARBON DIOXIDE 28 mmol/L (21-33); CHLORIDE 108 mmol/L (98-107); GFR AFRICAN-AMERICAN > 60; GLUCOSE,RANDOM 89 mg/dL (70-110); POTASSIUM 4.1 mmol/L (3.6-5.0); SODIUM 139 mmol/L (132-148); TOTAL PROTEIN 5.3 g/dL (5.8-8.3)
--- NOTE | 2017-04-13 08:33 | CP.PCM.PN ---
Subjective - Date & Time of Evaluation Date of Evaluation: 04/13/17 Time of Evaluation: 08:30 - Subjective Subjective: Pt s&e. NAEON. Pt tolering CLD. Has appetite. BM+. Pain controlled. +amb. Objective - Vital Signs/Intake and Output Vital Signs (last 24 hours): Temp Pulse Resp BP Pulse Ox 97.3 F L 52 L 18 125/71 98 04/12/17 17:51 04/12/17 17:51 04/12/17 17:51 04/12/17 17:51 04/12/17 06:00 Intake and Output: 04/13/17 04/13/17 06:59 18:59 Intake Total 180 Balance 180 - Medications Medications: Current Medications Acetaminophen (Tylenol 325mg Tab) 650 mg PO Q6H PRN PRN Reason: Fever >100.4 F Last Admin: 04/12/17 22:39 Dose: 650 mg Hydromorphone HCl (Dilaudid) 1 mg IVP Q4H PRN PRN Reason: Pain, moderate (4-7) Last Admin: 04/12/17 23:11 Dose: 1 mg Sodium Chloride (Sodium Chloride 0.9%) 1,000 mls @ 100 mls/hr IV .Q10H VI Last Admin: 04/13/17 05:48 Dose: 100 mls/hr Ondansetron HCl (Zofran Inj) 4 mg IVP Q4H PRN PRN Reason: Nausea/Vomiting Pantoprazole Sodium (Protonix Inj) 40 mg IVP DAILY VI Last Admin: 04/12/17 09:05 Dose: Not Given - Labs Labs: 04/13/17 07:00 04/13/17 07:00 PT 10.6 Seconds (9.9-11.8) 04/11/17 15:35 INR 0.98 (0.93-1.08) 04/11/17 15:35 APTT 26.8 Seconds (23.7-30.8) 04/11/17 15:35 - Constitutional Appears: Well, No Acute Distress - Head Exam Head Exam: ATRAUMATIC, NORMAL INSPECTION, NORMOCEPHALIC - Eye Exam Eye Exam: EOMI, Normal appearance, PERRL Pupil Exam: NORMAL ACCOMODATION, PERRL - ENT Exam ENT Exam: Mucous Membranes Moist, Normal Exam - Neck Exam Neck Exam: Full ROM, Normal Inspection. absent: Lymphadenopathy - Respiratory Exam Respiratory Exam: Clear to Ausculation Bilateral, NORMAL BREATHING PATTERN - Cardiovascular Exam Cardiovascular Exam: REGULAR RHYTHM, +S1, +S2. absent: Murmur - GI/Abdominal Exam GI & Abdominal Exam: Soft, Tenderness, Normal Bowel Sounds. absent: Distended, Firm, Guarding, Rigid, Rebound Additional comments: TTP . multiple laparoscopic incisions C/D/I. Healing. - Extremities Exam Extremities Exam: Full ROM, Normal Capillary Refill, Normal Inspection. absent : Joint Swelling, Pedal Edema - Back Exam Back Exam: NORMAL INSPECTION - Neurological Exam Neurological Exam: Alert, Awake, CN II-XII Intact, Normal Gait, Oriented x3 - Psychiatric Exam Psychiatric exam: Normal Affect, Normal Mood - Skin Skin Exam: Dry, Intact, Normal Color, Warm Assessment and Plan - Assessment and Plan (Free Text) Assessment: 67 w psh of gastric bypass and revision came with SBO: improving. No N/V/. BM + . Abd soft ND CT SBO at anastomosis AXR: contrast shown in the rectum. Partial obstruction: Pain controlled, no N/V -Advance diet as tolerated. -f/u C-diff -We will continue to follow closely
--- NOTE | 2017-04-13 09:09 | PN ---
DATE: 04/12/2017 ADDENDUM This is an addendum to the GI progress report dictated by Dr. Fonseca. The patient was seen and evaluated earlier. Feeling better, tolerating the diet , feeling better. Abdominal x-rays reviewed, negative, and started on diet, clear liquids, tolerating. Will slowly advance the diet. Thank you very much for allowing us to participate in the care of the patient. Jackie Zamarripa MD cc: [id number] TT: 04/13/2017 09:08:47 Confirmation # [id number] Dictation # [id number] en MTDD
[2017-04-13 09:27] VITALS: RESP 16
[2017-04-13] MEDS: HYDROmorphone 1 mg/ml ISec IVP PRN ×4 (09:57→22:37)
--- NOTE | 2017-04-13 11:13 | PN ---
DATE: 04/13/2017 DATE: 04/13/2017 SUBJECTIVE: The patient has no complaints of any chest pain, no shortness of breath. She says that she is having some funny feeling in her abdomen, not sure whether this is gas or pain. She is on a l iquid diet. PHYSICAL EXAMINATION: VITAL SIGNS: Temperature is 97.7, pulse of 55. Blood pressure 135/77, respirations 16. GENERAL: The patient is comfortable, in no acute distress. HEENT: Anicteric sclerae. Moist mucosa. NECK: No JVD or adenopathy. CARDIAC: S1/S2. No murmurs. No rubs. Regular. RESPIRATORY: Clear to auscultation bilaterally. No wheezes, rales, or rhonchi. Good air entry. ABDOMEN: Bowel sounds are positive, soft, nontender, and nondistended. EXTREMITIES: No edema. Has 1+ pulses. LABORATORY DATA: White count of 2.4, hemoglobin 11.1. Creatinine 0.5. ASSESSMENT: 1. Abdominal pain secondary to partial small-bowel obstruction. 2. Gastric bypass. 3. Chronic anemia. PLAN: The patient is currently comfortable. She does have bowel sounds. She has a white count that is low at 2.4. She is on a full liquid diet. She is going to be on Protonix. She is going to cont inue on Dilaudid for pain as needed. Jared Castle MD cc: [id number] TT: 04/13/2017 11:12:28 Confirmation # [id number] Dictation # [id number] matilde
--- NOTE | 2017-04-13 17:31 | PN ---
DATE: 04/13/2017 The patient was seen and evaluated earlier. The patient is tolerating the clear liquid diet. The patient had several episodes of loose bowel movements and had dark stool. PHYSICAL EXAMINATION: VITAL SIGNS: Temperature is 97.7, pulse 75, blood pressure is 135/77. HEENT: Atraumatic, anicteric. NECK: Supple. HEART: S1, S2 heard. LUNGS: Bilateral air entry present. ABDOMEN: Soft. There is no mass palpable. Minimal abdominal tenderness present. No rebound or guarding. LABORATORY DATA: Hemoglobin 11.1, hematocrit 35, WBC is 2.4, platelets 133. Chemistry is essentially unremarkable. IMPRESSION: A 67-year-old patient is status post recent bariatric surgery about a month ago following anastomotic stricture ulceration, admitted with small-bowel obstruction. Had episodes of diarrhea and nausea. Appears to be improving small-bowel obstruction. The patient has still episodes of diarrhea. Rule out gastroenteritis. Has a dark stool, but hemoglobin has been stable. Would recommend 1. Followup of the hemoglobin and hematocrit. 2. Stool for culture. We will consider starting the patient empirically on p.o. Flagyl. 3. Slowly advance the diet as tolerated. 4. We will start the patient on p.o. Flagyl and also Cipro. We will continue to closely monitor the patient and suggest further recommendation based on the clinical course. Thank you very much. Jackie Zamarripa MD cc: [id number] TT: 04/13/2017 17:30:53 Confirmation # [id number] Dictation # [id number] sn JOLLEY
[2017-04-14 07:33] LABS: ADD MANUAL DIFF? NO
--- NOTE | 2017-04-14 07:35 | CP.PCM.PN ---
Subjective - Date & Time of Evaluation Date of Evaluation: 04/14/17 Time of Evaluation: 07:00 - Subjective Subjective: General Surgery Progress note for Dr. Salas Pt was seen and examined at bedside this morning. No acute complaints at this time. No acute adverse events overnight as per nursing staff. Pt reports having BM and passing flatus. No complaints of pain at this time. Denied fever, chills , abdominal pain, n/v/d/c. Objective - Vital Signs/Intake and Output Vital Signs (last 24 hours): Temp Pulse Resp BP Pulse Ox 98.3 F 46 L 16 125/65 99 04/13/17 16:00 04/13/17 16:00 04/13/17 16:00 04/13/17 16:00 04/13/17 16:00 Intake and Output: 04/14/17 04/14/17 06:59 18:59 Intake Total 819 Balance 819 - Medications Medications: Current Medications Acetaminophen (Tylenol 325mg Tab) 650 mg PO Q6H PRN PRN Reason: Fever >100.4 F Last Admin: 04/12/17 22:39 Dose: 650 mg Hydromorphone HCl (Dilaudid) 1 mg IVP Q4H PRN PRN Reason: Pain, moderate (4-7) Last Admin: 04/13/17 22:37 Dose: 1 mg Metronidazole (Flagyl) 250 mg PO Q6H VI PRN Reason: Protocol Last Admin: 04/14/17 06:58 Dose: 250 mg Ondansetron HCl (Zofran Inj) 4 mg IVP Q4H PRN PRN Reason: Nausea/Vomiting Pantoprazole Sodium (Protonix Inj) 40 mg IVP DAILY [facility] Last Admin: 04/13/17 09:57 Dose: 40 mg - Labs Labs: 04/13/17 07:00 04/13/17 07:00 PT 10.6 Seconds (9.9-11.8) 04/11/17 15:35 INR 0.98 (0.93-1.08) 04/11/17 15:35 APTT 26.8 Seconds (23.7-30.8) 04/11/17 15:35 - Constitutional Appears: Well, No Acute Distress - Head Exam Head Exam: ATRAUMATIC, NORMAL INSPECTION, NORMOCEPHALIC - Eye Exam Eye Exam: EOMI, Normal appearance, PERRL Pupil Exam: NORMAL ACCOMODATION, PERRL - ENT Exam ENT Exam: Mucous Membranes Moist, Normal Exam - Neck Exam Neck Exam: Full ROM, Normal Inspection. absent: Lymphadenopathy - Respiratory Exam Respiratory Exam: Clear to Ausculation Bilateral, NORMAL BREATHING PATTERN - Cardiovascular Exam Cardiovascular Exam: REGULAR RHYTHM, +S1, +S2. absent: Murmur - GI/Abdominal Exam GI & Abdominal Exam: Soft, Normal Bowel Sounds. absent: Tenderness Additional comments: multiple laparoscopic incisions C/D/I. Healing. - Extremities Exam Extremities Exam: Full ROM, Normal Capillary Refill, Normal Inspection. absent : Joint Swelling, Pedal Edema - Neurological Exam Neurological Exam: Alert, Awake, CN II-XII Intact, Oriented x3 - Psychiatric Exam Psychiatric exam: Normal Affect, Normal Mood - Skin Skin Exam: Dry, Intact, Normal Color, Warm Assessment and Plan - Assessment and Plan (Free Text) Assessment: 67 F with hx of gastric bypass with revision admittied with partial SBO. - Pt is improving, ambulating, without pain, and tolerating diet. - No further surgical intervention at this time. - Surgery will sign off at this time. Hoang Cassidy, PGY1
[2017-04-14 07:41] LABS: BASO # 0.02 K/mm3 (0.0-2.0); BASO % 0.5 % (0.0-3.0); EOS # 0.1 (0.0-0.7); EOS % 3.4 % (1.5-5.0); GRAN # 2.87 (1.4-6.5); GRAN % 69.6 % (50.0-68.0); LYMPH # 0.8 (1.2-3.4); LYMPH % 19.7 % (22.0-35.0); MEAN CELL VOLUME 86.1 fL (80.0-105.0); MEAN CORPUSCULAR HEMOGLOBIN 27.5 pg (25.0-35.0); MEAN CORPUSCULAR HGB CONC 31.9 g/dl (31.0-37.0); MEAN PLATELET VOLUME 11.9 fl (7.0-11.0); MONO # 0.3 (0.1-0.6); MONO % 6.8 % (1.0-6.0); PLATELET COUNT 147 10^3/uL (120.0-450.0); WHITE BLOOD COUNT 4.1 10^3/ul (4.5-11.0)
[2017-04-14 08:15] LABS: ALB/GLOB RATIO 1.4 (1.1-1.8); ALKALINE PHOSPHATASE 98 U/L (38-133); ALT/SGPT 44 U/L (7-56); AST/SGOT 42 U/L (15-39); BILIRUBIN,TOTAL 0.3 mg/dL (0.2-1.3); BLOOD UREA NITROGEN 3 mg/dL (7-21); CALCIUM 8.6 mg/dL (8.4-10.5); CARBON DIOXIDE 31 mmol/L (21-33); CHLORIDE 103 mmol/L (95-110); GFR AFRICAN-AMERICAN > 60; GLUCOSE,RANDOM 97 mg/dL (70-110); POTASSIUM 4.4 mmol/L (3.6-5.0); SODIUM 140 mmol/L (132-148); TOTAL PROTEIN 5.7 g/dL (5.8-8.3)
[2017-04-14 08:52] VITALS: BP 122/73; PULSE 52; TEMP 98; O2SAT 97
--- NOTE | 2017-04-14 11:10 | PN ---
DATE: 04/14/2017 Seen and examined at the bedside this morning. She was ambulating in the nova. Denies any nausea, vomiting, abdominal pain. Denies diarrhea. VITAL SIGNS: Temperature is 98.0, blood pressure 122/73, pulse 52, respirations 16, 97% on room air. LABORATORIES: WBC is 4.1, this is improved, H and H is 11.5 and 36.0, remains stable, platelets of 147. Sodium is 140, K 4.4, BUN is 3, creatinine 0.5, total bilirubin is 0.3, AST is 42, ALT 44, alk phos is 98. Stool for occult blood was negative. The patient had stool for C. diff done and that was negative. Urine is positive for E. coli. PHYSICAL EXAMINATION: HEENT: Sclera is anicteric. NECK: Supple. CARDIAC: S1, S2. LUNGS: Clear. ABDOMEN: With bowel sounds, soft, no tenderness at this time, no rebound or guarding. EXTREMITIES: No edema. ASSESSMENT: A 67-year-old female status post bariatric surgery about a month ago following anastomotic stricture and ulceration. Came with small bowel obstruction. She did have episode of nausea, vomiting, and diarrhea. Rule out gastroenteritis, Clostridium difficile. The Clostridium difficile was negative. She is not having any more diarrhea. PLAN: Continue to monitor H and H, which remains steady. She is on Flagyl, on Protonix. Stool culture is pending. Continue her pureed diet. Discussed with patient when she is discharged to follow up with surgeon for gastric bypass. DC home on Flagyl PO additional 3 days. The patient was seen and case discussed with Dr. Zamarripa. Arlen Felicitas LINDA cc: [id number] TT: 04/14/2017 11:09:47 Confirmation # [id number] Dictation # [id number] en MTDD
--- NOTE | 2017-04-14 14:03 | DS ---
The patient is 67 years old, seen and examined, sitting in chair, seems to be comfortable, tolerating her purred food. No nausea or vomiting. She still has some epigastric and periumbilical discomfort , had multiple bowel movements. PHYSICAL EXAMINATION: VITAL SIGNS: She is afebrile, pulse 52, respirations 16, blood pressure 122/73. LUNGS: Bilateral fair airflow, no rhonchi or crackle. HEART: S1, S2 audible. No murmur. ABDOMEN: Soft, nontender, no rebound, no guarding. NEUROLOGIC: She is awake and alert, communicative, ambulatory. LABORATORY EXAMINATION: WBCs 4.1, hemoglobin 11.5, hematocrit 36, platelets of 147. Chemistry: Sod ium 140, potassium 4.4, chloride 103, CO2 31, BUN 3, creatinine 0.5, blood sugar of 97. ASSESSMENT: 1. Severe gastroenteritis. 2. Status post revision of gastric bypass. 3. Questionable partial small bowel obstruction. 4. Peptic ulcer disease. PLAN: The patient is being discharged home on Flagyl 250 q.i.d. for 3 more days. She will resume he r Nexium and she will follow up with her surgeon in a.m. We will give her appointment as outpatient. Ana Evans MD cc: [phone] TT: 04/14/2017 14:02:14 en
--- NOTE | 2017-04-15 00:46 | PN ---
DATE: 04/14/2017 ADDENDUM: This is an addendum to the GI progress report dictated by Arlen Polk APN. SUBJECTIVE: The patient was seen and evaluated today. The patient is tolerating the diet. No compl aints. Still has some mild loose bowel movements, much improved. PHYSICAL EXAMINATION: ABDOMEN: Soft. There is no tenderness. IMPRESSION: Resolved partial small-bowel obstruction, status post bariatric surgery for evaluation o f the gastrojejunal anastomosis. Rule out possible gastroenteritis, rule out Clostridium difficile. Stool was sent for C. difficile. Empirically on Flagyl. Clinically improving. PLAN: Will continue the Flagyl for 3 more days. The patient is planned to be discharged today. The patient was advised to follow up with her bariatric surgeon. Advised to get copies of the scans and reports for her to be followed up with the surgeon and advised to follow up in our office. Thank you very much for allowing us to participate in the care of the patient. Jackie Zamarripa MD cc: [id number] TT: 04/15/2017 00:45:57 Confirmation # [id number] Dictation # [id number] aury
== END 2017-04-14 13:33 | disposition home or self-care (01) | DRG 392 ==
LOC: ED 14:56 → ERH 20:18 → 2RSO 22:15 → 5RSO 04-12 22:21
PROVIDERS: ADMIT Internal Medicine; ATTEND Internal Medicine
DX: K52.9 Noninfective gastroenteritis and colitis, unspecified (principal); K56.60 Unspecified intestinal obstruction; K27.9 Peptic ulcer, site unspecified, unspecified as acute or chronic, without hemorrhage or perforation; D64.9 Anemia, unspecified; Z87.891 Personal history of nicotine dependence; Z98.84 Bariatric surgery status

== ENCOUNTER 2017-11-12 16:30 | Inpatient (IN) | payer MEDICARE, OTHER ==
[2017-11-12] MEDS ORDERED: HYDROmorphone 1 mg/ml ISec IVP STA ×2 (17:15→18:14)
--- NOTE | 2017-11-12 17:20 | ED PDOC ---
"Arrival/HPI - General Chief Complaint: Abdominal Pain Time Seen by Provider: 11/12/17 16:58 Historian: Patient, Family - History of Present Illness Narrative History of Present Illness (Text): 11/12/17 17:17 67 y/o female, pmh including gastric bypass/small bowel obstruction/Peptic ulcer disease which she is following up with Dr. Dallin Mejia (GI), not allergic to dilaudid as she had it before and stated that she has no allergic reaction to it, c/o lt. flank/midabdominal pain with nausea/vomiting started yesterday. Pt. stated that she had abdominal pain, associated with nausea and vomiting, had bowel movement today, no fever or chills, no night sweat, stated that this feels similiar to her previous small bowel obstruction about 1 year ago. pt. has no palpitation, no rash, no numbness or tingling, no change in vision, no other medical or psychological complaints. Past Medical History - Provider Review Nursing Documentation Reviewed: Yes - Infectious Disease Hx of Infectious Diseases: None - Tetanus Immunization Tetanus Immunization: Unknown - Reproductive Menopause: Yes - Cardiac Hx Pacemaker: No - Pulmonary Other/Comment: lung nodule, right lung, follows up every [address] young - Neurological Hx Paralysis: No - Hematological/Oncological Hx Blood Transfusions: No Hx Blood Transfusion Reaction: No - Musculoskeletal/Rheumatological Hx Musculoskeletal Disorders: Yes - Gastrointestinal Other/Comment: pt neal been following a liquid and baby food diet due to gastric ulcer as per dr jean. Pt had gastric bypass 2006, weighd 255 lbs, pt lost 100 lbs. has lost in the last 7 [id number] lbs and then. another 17, due to tx for gastric ulcer. pt needs to be on liquids and baby food for 2 months. pt needs to eat q2h - Psychiatric Hx Emotional Abuse: No Hx Physical Abuse: No Hx Substance Use: No - Surgical History Hx Gastric Bypass Surgery: Yes - Anesthesia Hx Anesthesia: Yes Hx Anesthesia Reactions: No Hx Malignant Hyperthermia: No - Suicidal Assessment Feels Threatened In Home Enviroment: No Family/Social History - Physician Review Nursing Documentation Reviewed: Yes Family/Social History: Unknown Family HX Smoking Status: Former Smoker Hx Alcohol Use: No Hx Substance Use: No Allergies/Home Meds Allergies/Adverse Reactions: Allergies hydromorphone HCl [From Dilaudid] Allergy (Severe, Verified 04/11/17 16:10) CHEST PRESSURE Home Medications: Home Meds Medication Instructions Recorded Confirmed Lansoprazole [Prevacid] 30 mg PO BID 08/06/16 11/12/17 oxyCODONE/Acetaminophen [Percocet 10 mg PO Q8H 12/12/16 11/12/17 5/325 mg Tab] Review of Systems - Review of Systems Constitutional: absent: Fatigue, Fevers Eyes: absent: Vision Changes ENT: absent: Hearing Changes Respiratory: absent: SOB, Cough Cardiovascular: absent: Chest Pain Gastrointestinal: Abdominal Pain, Nausea, Vomiting. absent: Diarrhea Musculoskeletal: absent: Arthralgias, Back Pain, Neck Pain Skin: absent: Rash, Pruritis Neurological: absent: Headache, Dizziness Psychiatric: absent: Anxiety, Depression, Suicidal Ideation Physical Exam Vital Signs Reviewed: Yes Vital Signs Temp Pulse Resp BP Pulse Ox 11/12/17 23:43 98.2 F 56 L 18 121/78 99 11/12/17 21:55 58 L 18 122/76 98 11/12/17 20:17 98.2 F 68 18 122/77 98 11/12/17 16:59 98.4 F 76 18 164/78 H 97 11/12/17 16:34 98.4 F 76 16 164/78 H 97 Temperature: Afebrile Blood Pressure: Hypertensive Pulse: Regular Respiratory Rate: Normal Appearance: Positive for: Well-Appearing, Non-Toxic, Uncomfortable Pain Distress: Severe Mental Status: Positive for: Alert and Oriented X 3 - Systems Exam Head: Present: Atraumatic, Normocephalic Pupils: Present: PERRL Extroacular Muscles: Present: EOMI Conjunctiva: Present: Normal Mouth: Present: Moist Mucous Membranes Neck: Present: Normal Range of Motion Respiratory/Chest: Present: Clear to Auscultation, Good Air Exchange. No: Respiratory Distress, Accessory Muscle Use Cardiovascular: Present: Regular Rate and Rhythm, Normal S1, S2. No: Murmurs Abdomen: Present: Tenderness (mid abdomen and epigastric region), Normal Bowel Sounds. No: Distention, Peritoneal Signs, Rebound, Guarding Back: Present: Normal Inspection, CVA Tenderness (lt. cva tenderness) Upper Extremity: Present: Normal Inspection. No: Cyanosis, Edema Lower Extremity: Present: Normal Inspection. No: Edema Neurological: Present: GCS=15, Speech Normal, Motor Func Grossly Intact, Gait Normal, Memory Normal Skin: Present: Warm, Dry, Normal Color. No: Rashes Psychiatric: Present: Alert, Oriented x 3, Normal Insight, Normal Concentration Medical Decision Making ED Course and Treatment: 11/12/17 17:21 Differential: Small bowel obstruction vs. UTI vs. Urethrolithiasis vs. ACS vs. Pancreatitis vs. Peritonitits vs. Colitis -labs/cardiac enzyme -UA -CT abdomen and pelvis -IVF/pepcid/zofran/dilaudid -Observe and reassess 11/12/17 18:19 -Pt. still has pain despite dilaudid 1mg IV, will order another 1mg IV with zofran 4mg. 11/12/17 22:09 -CT abdomen and pelvis: 1. Mild small bowel dilatation. DDX: Paralytic ileus, early obstruction. Suggest followup. 2. Biliary ductal dilatation dilatation, stable. 3. Focal narrowing/mural thickening vs underdistention of proximal transverse colon. Consider colonoscopy. -Pt. still having abdominal pain with total of 2mg dilaudid ordered, another 2mg of dilaudid ordered. -Labs are non-significant. -Pt. stated that this feels like her previous small bowel obstruction, stated that she doesn't have nausea/vomiting now, NG tube will defer to the surgical team as patient declined at this time. -Pt. request Dr. starkey to see her tomorrow, will put in routine consult. -Paging to Dr. Lam Foster as the patient stated that this is her new pmd. 11/12/17 22:37 -I spoke to DR. Frandy Foster, discussed about the labs/radiology result and Dr. Levine to be on the case, he agreed and will accept to his service. -I spoke to the surgical supervisor, Dr. Carlos, he will come to evaluate the patient and speak to Dr. Benjamin regarding about this consult for tomorrow. -Case discussed with DR. George Jackson, discussed the case in detail and agreed on the admission, he will put in admission order. - Lab Interpretations Lab Results: 11/12/17 17:30 11/12/17 17:30 Lab Results 11/12/17 18:45: Urine Color Yellow, Urine Appearance Sl cloudy, Urine pH 6.0, Ur Specific [place] <= 1.005, Urine Protein Negative, Urine Glucose (UA) Negative, Urine Ketones Negative, Urine Blood Negative, Urine Nitrate Negative, Urine Bilirubin Negative, Urine Urobilinogen 0.2, Ur Leukocyte Esterase Small H , Urine RBC Negative, Urine WBC 5 - 10, Ur Epithelial Cells 4 - 5, Urine Bacteria Mod 11/12/17 17:30: WBC 6.3 D, RBC 4.09, Hgb 12.3, Hct 38.5, MCV 94.1, MCH 30.1, MCHC 31.9, RDW 14.6 H, Plt Count 159, MPV 11.4 H, Gran % 72.9 H, Lymph % (Auto) 17.4 L, Stephens % (Auto) 8.4 H, Eos % (Auto) 1.1 L, Baso % (Auto) 0.2, Gran # 4.61 , Lymph # 1.1 L, Stephens # 0.5, Eos # 0.1, Baso # 0.01 11/12/17 17:30: Sodium 139, Potassium 4.6, Chloride 106, Carbon Dioxide 25, Anion Gap 13, BUN 14, Creatinine 0.7, Est GFR ( Amer) > 60, Est GFR (Non- Af Amer) > 60, Random Glucose 96, Calcium 9.1, Magnesium 1.8, Total Bilirubin 0.3, AST 26, ALT 29, Alkaline Phosphatase 70, Lactate Dehydrogenase 619, Total Creatine Kinase 62, Troponin I < 0.01, Total Protein 6.6, Albumin 4.2, Globulin 2.4, Albumin/Globulin Ratio 1.8, Lipase 118 I have reviewed the lab results: Yes Interpretation: Abnormal lab values (+UTI) - RAD Interpretation Radiology Orders: 11/12/17 17:13 ABDOMEN & PELVIS [ABD PELVIS PO & IV CONTRAST] [CT] Stat 11/12/17 17:16 CHEST PORTABLE [RAD] Stat CT abdomen and pelvis: FINDINGS: Lower thorax: No acute findings. ABDOMEN: Liver: Mild intrahepatic ductal dilatation, grossly stable. Gallbladder and bile ducts: Cholecystectomy. Mild extrahepatic ductal dilatation , grossly stable. Pancreas: No ductal dilation. No mass. Spleen: No splenomegaly. Adrenals: No mass. Kidneys and ureters: Too small to characterize lesion within LEFT kidney. Punctate calculus within LEFT kidney. No hydronephrosis. Stomach and bowel: Postsurgical changes of stomach. Postsurgical changes of small bowel. Focal narrowing/mural thickening vs underdistention proximal transverse colon. Mildly dilated loops of mid small bowel with fecalization. Nondistended loops of distal small bowel. Appendix: No findings to suggest acute appendicitis. ARLINE FRANKLIN | Final Radiology Report CONFIDENTIALITY STATEMENT This report is intended only for use by the referring physician, and only in accordance with law. If you received this in error, call [phone]. Page 2 of 2 PELVIS: Bladder: Unremarkable. Reproductive: Hysterectomy. ABDOMEN and PELVIS: Intraperitoneal space: No significant fluid collection. No free air. Bones/joints: Mild degenerative changes of spine. No acute fracture. Soft tissues: Unremarkable. Vasculature: Mild atherosclerotic disease. No aneurysm. Lymph nodes: No pathologically enlarged lymph nodes. IMPRESSION: 1. Mild small bowel dilatation. DDX: Paralytic ileus, early obstruction. Suggest followup. 2. Biliary ductal dilatation dilatation, stable. 3. Focal narrowing/mural thickening vs underdistention of proximal transverse colon. Consider colonoscopy. 4. Incidental/non-acute findings are described above. Thank you for allowing us to participate in the care of your patient. Dictated and Authenticated by: Reece Car MD 11/12/2017 10:03 PM Eastern Time ([place] & [place]) Chest xray: no active disease Fitness Manager: Radiologist - EKG Interpretation EKG Interpretation (Text): 11/12/17 17:35 -EKG: NSR @ 68 BPM, no ST elevation or depression, no T wave inversion. Interpreted by ED Physician: Yes Type: 12 lead EKG - Medication Orders Current Medication Orders: Hydromorphone HCl (Dilaudid) 1 mg IVP Q4H PRN PRN Reason: Pain, moderate (4-7) Last Admin: 11/13/17 10:26 Dose: 1 mg MAR Pain Assessment Document 11/13/17 10:26 ANTOALL (Rec: 11/13/17 10:27 ANTOALL [id number] ) Pain Reassessment Is this a pain reassessment? No Sleep Is patient sleeping during reassessment? No Presence of Pain Presence of Pain Yes Pain Scale Used Pain Scale Used Numeric Location Pain Location Body Site Abdomen Description Description Intermittent Intensity of Pain at present 8 IVP Administration Document 11/13/17 10:26 ANTOALL (Rec: 11/13/17 10:27 ANTOALL [id number] ) Charges for Administration # of IVP Administrations 1 Re-Assess: [facility] Pain Assessment Document 11/13/17 11:26 ANTOALL (Rec: 11/13/17 13:51 ANTOALL [id number]) Pain Reassessment Is this a pain reassessment? Yes Sleep Is patient sleeping during reassessment? No Presence of Pain Presence of Pain No Sodium Chloride (Sodium Chloride 0.9%) 1,000 mls @ 100 mls/hr IV .Q10H [facility] Last Admin: 11/13/17 09:37 Dose: 100 mls/hr eMAR Start Stop Document 11/13/17 09:37 ANTOALL (Rec: 11/13/17 09:37 ANTOALL [id number] ) Intravenous Solution Start Date 11/13/17 Start Time 09:37 Ondansetron HCl (Zofran Inj) 4 mg IVP Q6H PRN PRN Reason: Nausea/Vomiting Last Admin: 11/13/17 01:26 Dose: 4 mg IVP Administration Document 11/13/17 01:26 MAD (Rec: 11/13/17 01:26 MAD [id number]) Charges for Administration # of IVP Administrations 1 Pantoprazole Sodium (Protonix Inj) 40 mg IVP DAILY [facility] Last Admin: 11/13/17 09:35 Dose: 40 mg IVP Administration Document 11/13/17 09:35 ANTOALL (Rec: 11/13/17 09:35 ANTOALL [id number] ) Charges for Administration # of IVP Administrations 1 Discontinued Medications Hydromorphone HCl (Dilaudid) 1 mg IVP STAT STA Stop: 11/12/17 17:16 Last Admin: 11/12/17 17:49 Dose: 1 mg MAR Pain Assessment Document 11/12/17 17:49 EQ (Rec: 11/12/17 17:50 EQ [id number]) Pain Reassessment Is this a pain reassessment? No Sleep Is patient sleeping during reassessment? No Presence of Pain Presence of Pain Yes IVP Administration Document 11/12/17 17:49 EQ (Rec: 11/12/17 17:50 EQ [id number]) Charges for Administration # of IVP Administrations 1 Hydromorphone HCl (Dilaudid) 1 mg IVP STAT STA Stop: 11/12/17 18:15 Last Admin: 11/12/17 19:02 Dose: 1 mg MAR Pain Assessment Document 11/12/17 19:02 EQ (Rec: 11/12/17 19:02 EQ [id number]) Pain Reassessment Is this a pain reassessment? No Sleep Is patient sleeping during reassessment? No Presence of Pain Presence of Pain No Pain Scale Used Pain Scale Used Numeric IVP Administration Document 11/12/17 19:02 EQ (Rec: 11/12/17 19:02 EQ [id number]) Charges for Administration # of IVP Administrations 1 Hydromorphone HCl (Dilaudid) 2 mg IVP STAT STA Stop: 11/12/17 21:34 Last Admin: 11/12/17 22:04 Dose: 2 mg MAR Pain Assessment Document 11/12/17 22:04 EQ (Rec: 11/12/17 22:04 EQ [id number]) Pain Reassessment Is this a pain reassessment? No Sleep Is patient sleeping during reassessment? No Presence of Pain Presence of Pain Yes Pain Scale Used Pain Scale Used Numeric IVP Administration Document 11/12/17 22:04 EQ (Rec: 11/12/17 22:04 EQ [id number]) Charges for Administration # of IVP Administrations 1 Ceftriaxone Sodium 1 gm/ (Sodium Chloride) 100 mls @ 200 mls/hr IVPB ONCE ONE Stop: 11/12/17 19:59 Last Admin: 11/12/17 20:30 Dose: 200 mls/hr eMAR Start Stop Document 11/12/17 20:30 EQ (Rec: 11/12/17 20:30 EQ [id number]) Intravenous Solution Start Date 11/12/17 Start Time 20:30 Ondansetron HCl (Zofran Inj) 4 mg IVP STAT STA Stop: 11/12/17 17:16 Last Admin: 11/12/17 17:50 Dose: 4 mg IVP Administration Document 11/12/17 17:50 EQ (Rec: 11/12/17 17:50 EQ [id number]) Charges for Administration # of IVP Administrations 1 Ondansetron HCl (Zofran Inj) 4 mg IVP STAT STA Stop: 11/12/17 18:20 Last Admin: 11/12/17 19:02 Dose: 4 mg IVP Administration Document 11/12/17 19:02 EQ (Rec: 11/12/17 19:02 EQ [id number]) Charges for Administration # of IVP Administrations 1 - PA / PLANNING MANAGEMENT IT SPECIALIST / Resident Statement / has reviewed & agrees with the documentation as recorded. Disposition/Present on Arrival - Present on Arrival Any Indicators Present on Arrival: No History of DVT/PE: No History of Uncontrolled Diabetes: No Urinary Catheter: No History of Decub. Ulcer: No History Surgical Site Infection Following: None - Disposition Have Diagnosis and Disposition been Completed?: Yes Diagnosis: Bowel obstruction, UTI (urinary tract infection) Disposition: HOSPITALIZED Disposition Time: 22:16 Patient Plan: Admission Patient Problems: Current Active Problems Problem Status Onset Bowel obstruction Acute UTI (urinary tract infection) Acute Condition: STABLE"
[2017-11-12] MEDS ORDERED: Iohexol 240 (50 ml) ONE (17:36)
[2017-11-12] MEDS ORDERED: Iohexol 350 MG/100 ML VIAL ONE (17:36)
[2017-11-12] MEDS: Sodium Chloride 0.9% 1,000 ML IV SCH (17:49)
[2017-11-12 17:50] LABS: BASO # 0.01 K/mm3 (0.0-2.0); BASO % 0.2 % (0.0-3.0); EOS # 0.1 (0.0-0.7); EOS % 1.1 % (1.5-5.0); GRAN # 4.61 (1.4-6.5); GRAN % 72.9 % (50.0-68.0); HEMATOCRIT 38.5 % (36.0-48.0); LYMPH # 1.1 (1.2-3.4); LYMPH % 17.4 % (22.0-35.0); MEAN CELL VOLUME 94.1 fl (80.0-105.0); MEAN CORPUSCULAR HEMOGLOBIN 30.1 pg (25.0-35.0); MEAN CORPUSCULAR HGB CONC 31.9 g/dl (31.0-37.0); MEAN PLATELET VOLUME 11.4 fl (7.0-11.0); MONO # 0.5 (0.1-0.6); MONO % 8.4 % (1.0-6.0); RED CELL DISTRIBUTION WIDTH 14.6 % (11.5-14.5); WHITE BLOOD COUNT 6.3 10^3/ul (4.5-11.0)
[2017-11-12 18:17] LABS: TROPONIN I < 0.01 ng/mL
[2017-11-12 18:36] LABS: ALB/GLOB RATIO 1.8 (1.1-1.8); ALKALINE PHOSPHATASE 70 U/L (38-126); ALT/SGPT 29 U/L (7-56); AST/SGOT 26 U/L (14-36); BILIRUBIN,TOTAL 0.3 mg/dL (0.2-1.3); BLOOD UREA NITROGEN 14 mg/dL (7-21); CALCIUM 9.1 mg/dL (8.4-10.5); CARBON DIOXIDE 25 mmol/L (21-33); CHLORIDE 106 mmol/L (98-107); GFR AFRICAN-AMERICAN > 60; GLUCOSE,RANDOM 96 mg/dL (70-110); LIPASE 118 U/L (23-300); MAGNESIUM 1.8 mg/dL (1.7-2.2); POTASSIUM 4.6 mmol/L (3.6-5.0); SODIUM 139 mmol/L (132-148); TOTAL PROTEIN 6.6 g/dL (5.8-8.3)
[2017-11-12 18:50] LABS: URINE BILIRUBIN NEGATIVE (NEGATIVE); URINE BLOOD NEGATIVE (NEGATIVE); URINE GLUCOSE (UA) NEGATIVE (NEGATIVE); URINE KETONE NEGATIVE (NEGATIVE); URINE LEUKOCYTE ESTERASE SMALL Leu/uL (NEGATIVE); URINE PROTEIN NEGATIVE mg/dL (<30 mg/dL); URINE UROBILINOGEN 0.2 E.U./dL (<1 E.U./dL)
[2017-11-12 19:00] LABS: URINE APPEARANCE SL CLOUDY (CLEAR); URINE COLOR YELLOW (YELLOW)
[2017-11-12 19:03] LABS: URINE BACTERIA MOD (NEG); URINE RBC NEGATIVE /hpf (0-2)
[2017-11-12] MEDS ORDERED: cefTRIAXone 1 gm 1 GM/100 ML BAG IVPB SCH (19:30)
[2017-11-12] MEDS ORDERED: HYDROmorphone 2 mg/ml ISec IVP STA (21:33)
--- NOTE | 2017-11-12 22:03 | CT ---
EXAM: CT Abdomen and Pelvis With Intravenous Contrast CLINICAL HISTORY: 67 years old, female; Pain; Abdominal pain; Flank; Left; Additional info: Lt. Flank/mid abd pain x 2 days, +nausea/vomiting TECHNIQUE: Axial computed tomography images of the abdomen and pelvis with intravenous contrast. All CT scans at this facility use one or more dose reduction techniques, viz.: automated exposure control; ma/kV adjustment per patient size (including targeted exams where dose is matched to indication; i.e. head); or iterative reconstruction technique. Coronal and sagittal reformatted images were created and reviewed. CONTRAST: 92 mL of omni 350 administered intravenously. COMPARISON: CT - ABD PELVIS PO IV CONTRAST 2017-04-11 18:56 FINDINGS: Lower thorax: No acute findings. ABDOMEN: Liver: Mild intrahepatic ductal dilatation, grossly stable. Gallbladder and bile ducts: Cholecystectomy. Mild extrahepatic ductal dilatation, grossly stable. Pancreas: No ductal dilation. No mass. Spleen: No splenomegaly. Adrenals: No mass. Kidneys and ureters: Too small to characterize lesion within LEFT kidney. Punctate calculus within LEFT kidney. No hydronephrosis. Stomach and bowel: Postsurgical changes of stomach. Postsurgical changes of small bowel. Focal narrowing/mural thickening vs underdistention proximal transverse colon. Mildly dilated loops of mid small bowel with fecalization. Nondistended loops of distal small bowel. Appendix: No findings to suggest acute appendicitis. PELVIS: Bladder: Unremarkable. Reproductive: Hysterectomy. ABDOMEN and PELVIS: Intraperitoneal space: No significant fluid collection. No free air. Bones/joints: Mild degenerative changes of spine. No acute fracture. Soft tissues: Unremarkable. Vasculature: Mild atherosclerotic disease. No aneurysm. Lymph nodes: No pathologically enlarged lymph nodes. IMPRESSION: 1. Mild small bowel dilatation. DDX: Paralytic ileus, early obstruction. Suggest followup. 2. Biliary ductal dilatation dilatation, stable. 3. Focal narrowing/mural thickening vs underdistention of proximal transverse colon. Consider colonoscopy. 4. Incidental/non-acute findings are described above.
--- NOTE | 2017-11-13 00:29 | CP.PCM.CON ---
Addendum entered and electronically signed by Jaden Fonseca DO 11/13/17 13:08: Pain improved. Pt passing gas and wishes to go home. Advance diet as tolerated. If tolerating diet, pt clear for DC for surgical standpoint. DW Dr. Stratton Original Note: <Pedro Laura - Last Filed: 11/13/17 08:25> History of Present Illness - History of Present Illness History of Present Illness: Surgery Consult note. Dr. Stratton 67yo F with Hx of Gastric Bypass in 2006 complicated with multiple SB strictures with anastomotic ulcers s/p resection February 2017 at [facility], here for evaluation of epigastric pain, N/V. She states that she had one episode of vomiting yesterday evening. She reports two more episodes of vomiting today. She states that it is associated with food intake. She states that she has episodes of vomiting within one hour after she eats, No blood, no bile. She has had similar symptoms in the past when she was diagnosed with SBO. She reports epigastric pain described as sharp, stabbing and severe in quality. Radiates to the left flank. Last oral intake was this afternoon at 3PM, last episode of vomiting was around 4PM. Last BM was this morning, no blood, no melena and normal caliber. Reports a decreased appetite. She denies any F/C. No sick contacts. PMHx: Back pain PSHx: Gastric Bypass 2006 complicated by multiple strictures and perianastomotic ulcers; laparascopic ulcer resection in February 2017. Cholecystectomy. Right Knee replacement. Hysterectomy Social Hx: Previous tobacco use, denies current tobacco. Denies ETOH. Denies illcit drugs NKDA Review of Systems - Review of Systems All systems: reviewed and no additional remarkable complaints except - Constitutional Constitutional: Anorexia. absent: Chills, Fever - Cardiovascular Cardiovascular: absent: Chest Pain, Dyspnea - Gastrointestinal Gastrointestinal: Abdominal Pain, Nausea, Vomiting. absent: Diarrhea, Hematemesis, Hematochezia - Genitourinary Genitourinary: Flank Pain (Left). absent: Dysuria Past Patient History - Infectious Disease Hx of Infectious Diseases: None - Tetanus Immunizations Tetanus Immunization: Unknown - Past Social History Smoking Status: Former Smoker - CARDIAC Hx Pacemaker: No - PULMONARY Other/Comment: lung nodule, right lung, follows up every [address] young - NEUROLOGICAL Hx Paralysis: No - HEMATOLOGICAL/ONCOLOGICAL Hx Blood Transfusions: No Hx Blood Transfusion Reaction: No - MUSCULOSKELETAL/RHEUMATOLOGICAL Hx Musculoskeletal Disorders: Yes - GASTROINTESTINAL Other/Comment: pt neal been following a liquid and baby food diet due to gastric ulcer as per dr jena. Pt had gastric bypass 2006, weighd 255 lbs, pt lost 100 lbs. has lost in the last 7 [id number] lbs and then. another 17, due to tx for gastric ulcer. pt needs to be on liquids and baby food for 2 months. pt needs to eat q2h - PSYCHIATRIC Hx Emotional Abuse: No Hx Physical Abuse: No Hx Substance Use: No - SURGICAL HISTORY Hx Gastric Bypass Surgery: Yes - ANESTHESIA Hx Anesthesia: Yes Hx Anesthesia Reactions: No Hx Malignant Hyperthermia: No Meds Allergies/Adverse Reactions: Allergies Allergy/AdvReac Type Severity Reaction Status Date / Time hydromorphone HCl Allergy Severe CHEST Verified 04/11/17 16:10 [From Dilaudid] PRESSURE - Medications Medications: Current Medications Sodium Chloride (Sodium Chloride 0.9%) 1,000 mls @ 100 mls/hr IV .Q10H VI Last Admin: 11/12/17 17:49 Dose: 100 mls/hr Physical Exam - Constitutional Appears: Well, No Acute Distress - Head Exam Head Exam: ATRAUMATIC, NORMAL INSPECTION, NORMOCEPHALIC - Eye Exam Eye Exam: EOMI, Normal appearance - ENT Exam ENT Exam: Mucous Membranes Moist - Respiratory Exam Respiratory Exam: NORMAL BREATHING PATTERN. absent: Accessory Muscle Use, Respiratory Distress - Cardiovascular Exam Cardiovascular Exam: absent: JVD - GI/Abdominal Exam GI & Abdominal Exam: Soft, Tenderness (epigastric tenderness). absent: Distended, Firm, Guarding, Rigid - Extremities Exam Extremities exam: Positive for: normal inspection. Negative for: calf tenderness - Back Exam Back exam: CVA tenderness (L) - Neurological Exam Neurological exam: Alert, Oriented x3 - Psychiatric Exam Psychiatric exam: Normal Affect, Normal Mood - Skin Skin Exam: Dry, Intact, Normal Color, Warm Results - Vital Signs Recent Vital Signs: Last Vital Signs Temp 98.2 F 11/12/17 23:43 Pulse 56 L 11/12/17 23:43 Resp 18 11/12/17 23:43 BP 121/78 11/12/17 23:43 Pulse Ox 99 11/12/17 23:43 - Labs Result Diagrams: 11/13/17 06:30 11/13/17 06:30 Assessment & Plan - Assessment and Plan (Free Text) Assessment: 67yo F with hx of Gastric bypass surgery here with early SBO - CT Abd/Pelvis noted - labs wnl Plan: - NPO for bowel rest - IVF - Zofran prn - Pain management - Consider NGT if patient continues to have N/V - Serial abd exams - Recommend GI consult Further recs as per Dr. Chayito Laura PGY1 surgery pager: [phone] <Daniel Stratton - Last Filed: 11/13/17 20:55> Results - Vital Signs Recent Vital Signs: Last Vital Signs Temp 97.8 F 11/13/17 07:30 Pulse 58 L 11/13/17 07:30 Resp 20 11/13/17 07:30 BP 111/64 11/13/17 07:30 Pulse Ox 96 11/13/17 07:30 - Labs Result Diagrams: 11/13/17 06:30 11/13/17 06:30 Labs: Laboratory Results - last 24 hr 11/13/17 11/13/17 06:30 06:30 WBC 4.6 D RBC 3.62 Hgb 10.9 L Hct 34.5 L MCV 95.3 MCH 30.1 MCHC 31.6 RDW 14.9 H Plt Count 131 MPV 11.0 Gran % 66.8 Lymph % (Auto) 20.9 L [place] % (Auto) 9.1 H Eos % (Auto) 3.0 Baso % (Auto) 0.2 Gran # 3.10 Lymph # 1.0 L [place] # 0.4 Eos # 0.1 Baso # 0.01 Sodium 140 Potassium 4.1 Chloride 106 Carbon Dioxide 27 Anion Gap 11 BUN 13 Creatinine 0.6 L Est GFR ( Amer) > 60 Est GFR (Non-Af Amer) > 60 Random Glucose 89 Calcium 8.7 Total Bilirubin 0.4 AST 101 H D ALT 68 H Alkaline Phosphatase 69 Total Protein 5.5 L Albumin 3.4 Globulin 2.1 Albumin/Globulin Ratio 1.7 Assessment & Plan - Assessment and Plan (Free Text) Plan: Patient was seen, evaluated and examined by me. I agree with the assessment and plan as per the resident's note. - Date & Time Date: 11/13/17 Time: 10:20
[2017-11-13] MEDS: HYDROmorphone 1 mg/ml ISec IVP PRN ×4 (01:25→14:52)
[2017-11-13 05:19] VITALS: BMI 22.6
[2017-11-13 07:21] LABS: BASO # 0.01 K/mm3 (0.0-2.0); BASO % 0.2 % (0.0-3.0); EOS # 0.1 (0.0-0.7); GRAN # 3.1 (1.4-6.5); GRAN % 66.8 % (50.0-68.0); HEMATOCRIT 34.5 % (36.0-48.0); LYMPH % 20.9 % (22.0-35.0); MEAN CELL VOLUME 95.3 fl (80.0-105.0); MEAN CORPUSCULAR HEMOGLOBIN 30.1 pg (25.0-35.0); MEAN CORPUSCULAR HGB CONC 31.6 g/dl (31.0-37.0); MONO # 0.4 (0.1-0.6); MONO % 9.1 % (1.0-6.0); RED CELL DISTRIBUTION WIDTH 14.9 % (11.5-14.5); WHITE BLOOD COUNT 4.6 10^3/ul (4.5-11.0)
[2017-11-13 08:01] LABS: ALB/GLOB RATIO 1.7 (1.1-1.8); ALKALINE PHOSPHATASE 69 U/L (38-126); ALT/SGPT 68 U/L (7-56); AST/SGOT 101 U/L (14-36); BILIRUBIN,TOTAL 0.4 mg/dL (0.2-1.3); BLOOD UREA NITROGEN 13 mg/dL (7-21); CALCIUM 8.7 mg/dL (8.4-10.5); CARBON DIOXIDE 27 mmol/L (21-33); CHLORIDE 106 mmol/L (98-107); GFR AFRICAN-AMERICAN > 60; GLUCOSE,RANDOM 89 mg/dL (70-110); POTASSIUM 4.1 mmol/L (3.6-5.0); SODIUM 140 mmol/L (132-148); TOTAL PROTEIN 5.5 g/dL (5.8-8.3)
[2017-11-13 08:55] VITALS: BP 111/64; PULSE 58; RESP 20; TEMP 97.8; O2SAT 96
[2017-11-13] MEDS: Sodium Chloride 0.9% 1,000 ML IV SCH (09:37)
--- NOTE | 2017-11-13 10:16 | CARD ---
APPROVED REPORT EKG Measurement Heart [id number] CO [id number] [id number] <Conclusion> Normal sinus rhythm Leftward axis No change
--- NOTE | 2017-11-13 14:20 | RAD ---
HISTORY: medical clearance COMPARISON: Comparison chest dated 04/11/2017. Comparison also made with CT scan of the abdomen and pelvis 11/12/2017 which also imaged both lung bases in 3 planes. FINDINGS: LUNGS: Re- demonstrated is a tiny granuloma right peripheral aspect right lateral upper lobe lung field. No acute consolidation. PLEURA: No significant pleural effusion identified, no pneumothorax apparent. CARDIOVASCULAR: Heart size mildly enlarged. . Aorta is slightly ectatic and uncoiled. . OSSEOUS STRUCTURES: Mild multilevel degenerative spondylosis of the thoracic spine. VISUALIZED UPPER ABDOMEN: Normal. OTHER FINDINGS: No acute consolidation. Small granuloma right lateral upper lung field unchanged. IMPRESSION: No active disease.
--- NOTE | 2017-11-13 18:48 | CP.PCM.CON ---
<Arlen Polk - Last Filed: 11/13/17 18:48> History of Present Illness - History of Present Illness History of Present Illness: S&E at bedside, chart reviewed. Request for GI evaluation is for small bowel obstruction. HPI: This is a 67 y.o female with a PMH of gastric bypass w/ complication by multiple stricture and perianastomotic ulcers. Patient had resection in February 2017 at [facility]. Patient came to ER with c/o of abdominal pain that started yesterday morning. Patient endorsed having eaten eggs and vomited 30 minutes later, she went to a [employer] and also vomited her intake of food , but also experienced sharp epigastric pain that radiated to left flank. No hematemsis, fever or chill, She did have a BM this am, no diarrhea. Denies overt GI bleeding. No further episode of N/V. Abdominal pain better. Had multiple EGD with dilation for stenosis at GE junction, last EGD was 01/2017, last colon was 2010, no colon polyps. Denies weight loss but decrease appetite.Had ct scan on admission reporting mild small bowel dilation/biliary dilation, stable,narrowing/thickening vs underdistention of proximal transverse colon. PMH:Back pain, PSH: gastric bypass, complicated with multiple strictures and perianastomotic ulcer, 02/2017 laparascopic resection, cholecystectomy, right knee replacement, hysterectomy Social HX: tobacco use in the past, denies etoh/drugs Allergies: hydromorphine HCL Family HX: noncontributory at this time MEDS: reviewed s per JAN ROS: systems reviewed with positive findings Past Patient History - Infectious Disease Hx of Infectious Diseases: None - Tetanus Immunizations Tetanus Immunization: Unknown - Past Social History Smoking Status: Former Smoker - CARDIAC Hx Pacemaker: No - PULMONARY Other/Comment: lung nodule, right lung, follows up every [address] young - NEUROLOGICAL Hx Paralysis: No - HEENT Other/Comment: wears reading glasses - HEMATOLOGICAL/ONCOLOGICAL Hx Blood Transfusions: No Hx Blood Transfusion Reaction: No - MUSCULOSKELETAL/RHEUMATOLOGICAL Hx Musculoskeletal Disorders: Yes - GASTROINTESTINAL Other/Comment: pt neal been following a liquid and baby food diet due to gastric ulcer as per dr zamarripa. Pt had gastric bypass 2006, weighd 255 lbs, pt lost 100 lbs. has lost in the last 7 [id number] lbs and then. another 17, due to tx for gastric ulcer. pt needs to be on liquids and baby food for 2 months. pt needs to eat q2h - PSYCHIATRIC Hx Emotional Abuse: No Hx Physical Abuse: No Hx Substance Use: No - SURGICAL HISTORY Hx Gastric Bypass Surgery: Yes - ANESTHESIA Hx Anesthesia: Yes Hx Anesthesia Reactions: No Hx Malignant Hyperthermia: No Meds Allergies/Adverse Reactions: Allergies Allergy/AdvReac Type Severity Reaction Status Date / Time hydromorphone HCl Allergy Severe CHEST Verified 04/11/17 16:10 [From Dilaudid] PRESSURE - Medications Medications: Current Medications Hydromorphone HCl (Dilaudid) 1 mg IVP Q4H PRN PRN Reason: Pain, moderate (4-7) Last Admin: 11/13/17 14:52 Dose: 1 mg Sodium Chloride (Sodium Chloride 0.9%) 1,000 mls @ 100 mls/hr IV .Q10H VI Last Admin: 11/13/17 09:37 Dose: 100 mls/hr Ondansetron HCl (Zofran Inj) 4 mg IVP Q6H PRN PRN Reason: Nausea/Vomiting Last Admin: 11/13/17 01:26 Dose: 4 mg Pantoprazole Sodium (Protonix Inj) 40 mg IVP DAILY VI Last Admin: 11/13/17 09:35 Dose: 40 mg Physical Exam - Constitutional Appears: No Acute Distress - Head Exam Head Exam: NORMOCEPHALIC - Eye Exam Eye Exam: Normal appearance. absent: Scleral icterus - ENT Exam ENT Exam: Mucous Membranes Moist - Neck Exam Neck exam: Positive for: Normal Inspection - Respiratory Exam Respiratory Exam: NORMAL BREATHING PATTERN. absent: Respiratory Distress - Cardiovascular Exam Cardiovascular Exam: +S1, +S2 - GI/Abdominal Exam GI & Abdominal Exam: Normal Bowel Sounds, Soft. absent: Guarding, Rebound, Tenderness - Extremities Exam Extremities exam: Positive for: pedal pulses present. Negative for: calf tenderness, pedal edema - Neurological Exam Neurological exam: Alert, Oriented x3 - Skin Skin Exam: Dry, Warm Results - Vital Signs Recent Vital Signs: Last Vital Signs Temp 97.8 F 11/13/17 07:30 Pulse 58 L 11/13/17 07:30 Resp 20 11/13/17 07:30 BP 111/64 11/13/17 07:30 Pulse Ox 96 11/13/17 07:30 - Labs Result Diagrams: 11/13/17 06:30 11/13/17 06:30 Labs: Laboratory Results - last 24 hr 11/13/17 11/13/17 06:30 06:30 WBC 4.6 D RBC 3.62 Hgb 10.9 L Hct 34.5 L MCV 95.3 MCH 30.1 MCHC 31.6 RDW 14.9 H Plt Count 131 MPV 11.0 Gran % 66.8 Lymph % (Auto) 20.9 L [place] % (Auto) 9.1 H Eos % (Auto) 3.0 Baso % (Auto) 0.2 Gran # 3.10 Lymph # 1.0 L [place] # 0.4 Eos # 0.1 Baso # 0.01 Sodium 140 Potassium 4.1 Chloride 106 Carbon Dioxide 27 Anion Gap 11 BUN 13 Creatinine 0.6 L Est GFR ( Amer) > 60 Est GFR (Non-Af Amer) > 60 Random Glucose 89 Calcium 8.7 Total Bilirubin 0.4 AST 101 H D ALT 68 H Alkaline Phosphatase 69 Total Protein 5.5 L Albumin 3.4 Globulin 2.1 Albumin/Globulin Ratio 1.7 Assessment & Plan - Assessment and Plan (Free Text) Assessment: ASSESSMENT: Abdominal Pain N/V SBO vs gastroenteritis h/o gastric bypass with h/o strictures/perianastomotic ulcers, s/p resection Anemia Mildly elevated LFT, ? medication induced PLAN: clear liquid, advance as tolerated continue GI prophylaxsis NGT if have N/V trend LFT discuss w/ patient FU outpatient office , will need elective outpatient egd/ colonoscopy seen by surgery recommendation noted. Thank you for this consult and for allowing us to participate in your patient care, further recommendation based upon clinical course. Seen and discussed w/ Dr. Zamarripa. <Jackie Zamarripa V - Last Filed: 11/13/17 23:23> Results - Vital Signs Recent Vital Signs: Last Vital Signs Temp 97.8 F 11/13/17 07:30 Pulse 58 L 11/13/17 07:30 Resp 20 11/13/17 07:30 BP 111/64 11/13/17 07:30 Pulse Ox 96 11/13/17 07:30 - Labs Result Diagrams: 11/13/17 06:30 11/13/17 06:30 Labs: Laboratory Results - last 24 hr 11/13/17 11/13/17 06:30 06:30 WBC 4.6 D RBC 3.62 Hgb 10.9 L Hct 34.5 L MCV 95.3 MCH 30.1 MCHC 31.6 RDW 14.9 H Plt Count 131 MPV 11.0 Gran % 66.8 Lymph % (Auto) 20.9 L [place] % (Auto) 9.1 H Eos % (Auto) 3.0 Baso % (Auto) 0.2 Gran # 3.10 Lymph # 1.0 L [place] # 0.4 Eos # 0.1 Baso # 0.01 Sodium 140 Potassium 4.1 Chloride 106 Carbon Dioxide 27 Anion Gap 11 BUN 13 Creatinine 0.6 L Est GFR ( Amer) > 60 Est GFR (Non-Af Amer) > 60 Random Glucose 89 Calcium 8.7 Total Bilirubin 0.4 AST 101 H D ALT 68 H Alkaline Phosphatase 69 Total Protein 5.5 L Albumin 3.4 Globulin 2.1 Albumin/Globulin Ratio 1.7 Attending/Attestation - Attestation I have personally seen and examined this patient.: Yes I have fully participated in the care of the patient.: Yes I have reviewed all pertinent clinical information: Yes Notes (Text): This is an addendum to GI Consult report dictated by Arlen Polk APN.The patient was seen and examined earlier. Medical records, lab studies, imagings were reviewed. Last 24 hours events reviewed. Agreed with the above treatment plan as outlined in Arlen Polk APN's notes the with the addition of the following on examination abdomen soft minimal tenderness on deep palpation in the epigastric area Patient did have good twice bowel movements Tolerating the diet Surgical note appreciated Plan for discharge today if the patient remains symptomatic and tolerating the diet EGD and colonoscpy as an outpatient 11/13/17 23:20
--- NOTE | 2017-11-14 01:06 | CON ---
CONSULTATION DATE: 11/13/2017 CHIEF COMPLAINT: Abdominal pain and vomiting. HISTORY OF PRESENT ILLNESS: This is a 67-year-old female with history of a gastric bypass in 2006. The patient reports yesterday after eating she began having some abdominal pain, pain was mostly in the left upper quadrant, pain radiated to her bilateral lower back. The patient vomited a few times. She denies any fever or chills. She presented to the hospital for evaluation. During her evaluation, a CT scan was done which showed a small left renal calculus and a consultation was requested. The patient reports she is voiding well. She denies any dysuria, urinary frequency, urgency or gross hematuria. She is currently feeling better with no further abdominal pain. She still has some low back pain. She reports no other stone episodes in the past. PAST MEDICAL HISTORY: Significant for gastric bypass with anastomotic ulcers, cholecystectomy, right knee replacement, hysterectomy. MEDICATIONS: Include Dilaudid, Protonix and Zofran. ALLERGIES: ALLERGIC TO HYDROMORPHONE. FAMILY HISTORY: Noncontributory for this episode. SOCIAL HISTORY: Positive for smoking, quit years ago. Denies EtOH use. REVIEW OF SYSTEMS: A 12-point review of systems was obtained. Positives as per the HPI. Other systems are negative. PHYSICAL EXAMINATION: GENERAL: The patient is awake, alert, in no acute distress. She is answering questions coherently. VITAL SIGNS: She is afebrile, temperature 97.8, pulse of 58, BP 111/64, respirations 20. NECK: Her neck is supple. There is no adenopathy. CHEST: Examination of the chest reveals a normal inspiratory effort. CARDIAC: Exam shows positive S1, S2. There is no peripheral edema noted. ABDOMEN: On abdominal exam, the abdomen is soft, nontender. There is some mild distention. There is no rebound or guarding. There is no CVA tenderness, but the patient has some bilateral low back tenderness to palpation. EXTREMITIES: No cyanosis or edema. LABORATORY EXAM: WBC count 4.6, BUN of 13, creatinine 0.6, the GFR greater than 60. Urinalysis showed negative rbc's, 5 to 10 wbc's, 4 to 5 epithelial cells, negative for nitrites. On radiologic exam, the patient had a CT scan of the abdomen and pelvis which showed there was a too small to characterize lesion within the left kidney, there was a punctate calculus within the left kidney, no hydronephrosis, and the bladder was unremarkable. There was some focal narrowing mural thickening of the proximal transverse colon, there was some biliary ductal dilatation which was read as stable, there was mild small bowel dilatation. IMPRESSION AND PLAN: This is a 67-year-old female admitted with likely early or partial small bowel obstruction which appears to have improved. Urologically, the patient has a punctate renal calculus. Her pain does not appear to be from renal colic. There also was a reported small lesion in the kidney which is too small to characterize, and I would recommend a repeat CT scan in 6 months to reassess that lesion. I have discussed with the patient that she requires urologic followup as she is at high risk for kidney stones given her prior abdominal surgery. The patient understands and she agrees to follow up in the office and we will plan a 24-hour urine for stone risk. I advised the patient that she should increase her water intake to help prevent formation of stone. Reportedly, the patient is going to be discharged tomorrow if she is tolerating a diet with no further vomiting or pain, and I agree with this plan from a urologic standpoint. The patient will follow up in my office in a few weeks after discharge. Thank you for allowing me to participate in the care of this patient. We will follow her with you. Tucker Rodriguez MD
== END 2017-11-13 18:15 | disposition home or self-care (01) | DRG 389 ==
LOC: ED 16:30 → ERH 22:47 → 5RNO 11-13 00:39
PROVIDERS: ADMIT Internal Medicine; ATTEND Internal Medicine
DX: K56.600 Partial intestinal obstruction, unspecified as to cause (principal); N39.0 Urinary tract infection, site not specified; K52.9 Noninfective gastroenteritis and colitis, unspecified; N20.0 Calculus of kidney; Z96.651 Presence of right artificial knee joint; Z87.11 Personal history of peptic ulcer disease; Z98.84 Bariatric surgery status; Z87.891 Personal history of nicotine dependence

== ENCOUNTER 2017-12-24 15:12 | Inpatient (IN) | payer MEDICARE ==
[2017-12-24 15:22] VITALS: BMI 23.1
[2017-12-24] MEDS ORDERED: HYDROmorphone 1 mg/ml ISec IVP STA ×4 (16:03→22:06)
[2017-12-24] MEDS ORDERED: Sodium Chloride 0.9% 500 ML IV STA ×2 (16:03→21:35)
--- NOTE | 2017-12-24 16:18 | RAD ---
HISTORY: abd pain COMPARISON: 11/12/2017 FINDINGS: LUNGS: No active pulmonary disease. PLEURA: No significant pleural effusion identified, no pneumothorax apparent. CARDIOVASCULAR: Normal. OSSEOUS STRUCTURES: No significant abnormalities. VISUALIZED UPPER ABDOMEN: Normal. OTHER FINDINGS: None. IMPRESSION: No active disease.
[2017-12-24 16:45] LABS: BASO # 0.02 K/mm3 (0.0-2.0); BASO % 0.4 % (0.0-3.0); EOS % 0.7 % (1.5-5.0); GRAN # 4.36 (1.4-6.5); GRAN % 76.3 % (50.0-68.0); LYMPH % 17.3 % (22.0-35.0); MEAN CELL VOLUME 96.2 fl (80.0-105.0); MEAN CORPUSCULAR HEMOGLOBIN 30.8 pg (25.0-35.0); MEAN PLATELET VOLUME 11.2 fl (7.0-11.0); MONO # 0.3 (0.1-0.6); MONO % 5.3 % (1.0-6.0); RBC 3.9 10^6/uL (3.5-6.1); RED CELL DISTRIBUTION WIDTH 13.7 % (11.5-14.5); URINE BILIRUBIN NEGATIVE (NEGATIVE); URINE BLOOD NEGATIVE (NEGATIVE); URINE GLUCOSE (UA) NEGATIVE (NEGATIVE); URINE LEUKOCYTE ESTERASE SMALL Leu/uL (NEGATIVE); URINE NITRATE NEGATIVE (NEGATIVE); URINE PROTEIN NEGATIVE mg/dL (<30 mg/dL); URINE UROBILINOGEN 0.2 E.U./dL (<1 E.U./dL); WHITE BLOOD COUNT 5.7 10^3/ul (4.5-11.0)
[2017-12-24 16:47] LABS: URINE APPEARANCE CLEAR (CLEAR); URINE COLOR YELLOW (YELLOW); VENOUS BLOOD GAS BASE EXCESS -1.4 mmol/L (0.0-2.0); VENOUS BLOOD GAS PO2 28 mm/Hg (30-55); VENOUS BLOOD PH 7.26 (7.32-7.43)
[2017-12-24 16:53] LABS: ALB/GLOB RATIO 1.5 (1.1-1.8); ALBUMIN 3.9 g/dL (3.0-4.8); ALT/SGPT 28 U/L (7-56); AST/SGOT 28 U/L (14-36); BLOOD UREA NITROGEN 10 mg/dL (7-21); CALCIUM 9.5 mg/dL (8.4-10.5); GFR AFRICAN-AMERICAN > 60; GFR NON-AFRICAN AMERICAN > 60; LIPASE 102 U/L (23-300)
[2017-12-24 17:01] LABS: URINE BACTERIA FEW (NEG); URINE RBC NEGATIVE /hpf (0-2)
[2017-12-24] MEDS ORDERED: Iohexol 240 (50 ml) ONE (17:12)
[2017-12-24] MEDS ORDERED: HYDROmorphone 2 mg/ml ISec IVP STA ×2 (19:16→22:00)
[2017-12-24] MEDS ORDERED: Iohexol 350 MG/100 ML VIAL ONE (19:24)
[2017-12-24 20:16] LABS: INR 0.89 (0.93-1.08); PARTIAL THROMBOPLASTIN TIME 28.4 Seconds (25.1-36.5); PROTHROMBIN TIME 10.1 SECONDS (9.4-12.5)
--- NOTE | 2017-12-24 20:26 | CP.PCM.CON ---
History of Present Illness - History of Present Illness History of Present Illness: Surgery Consult note. Dr. Stratton 67F pmhx significant for Gastric bypass in 2006 complicated w/ multiple SB strictures w/ anastomotic ulcers s/p small bowel resection February 2017 at [facility]. Patient presents with sharp mid-epigastric pain radiating straight to the back that started at 14:30 after eating brunch. Patient had similar symptoms 1 month prior that resolved with bowel rest. Today she had nausea with one episode of non-blood, non-bilious watery emesis. Patient has not passes flatus or had a BM since the pain started. Admits to subjective fever. No recent sick contacts or foreign travel. PMH: back pain PSH: Gastric bypass 2006 w/ mulitple stricutres and perianastomotic ulcers; laparascopic ulcer resection in February 2017. Cholecystectomy, R.TKA, hysterectomy ALL: NKDA SocialHx: previous tobacco use, denies current EOTH, recreational drug use Review of Systems - Review of Systems All systems: reviewed and no additional remarkable complaints except - Constitutional Constitutional: As Per HPI Past Patient History - Infectious Disease Hx of Infectious Diseases: None - Tetanus Immunizations Tetanus Immunization: Unknown - Past Social History Smoking Status: Former Smoker - CARDIAC Hx Pacemaker: No - PULMONARY Other/Comment: lung nodule, right lung, follows up every [address] young - NEUROLOGICAL Hx Paralysis: No - HEENT Other/Comment: wears reading glasses - HEMATOLOGICAL/ONCOLOGICAL Hx Blood Transfusions: No Hx Blood Transfusion Reaction: No - MUSCULOSKELETAL/RHEUMATOLOGICAL Hx Musculoskeletal Disorders: Yes - GASTROINTESTINAL Other/Comment: pt neal been following a liquid and baby food diet due to gastric ulcer as per dr jean. Pt had gastric bypass 2006, weighd 255 lbs, pt lost 100 lbs. has lost in the last 7 [id number] lbs and then. another 17, due to tx for gastric ulcer. pt needs to be on liquids and baby food for 2 months. pt needs to eat q2h - PSYCHIATRIC Hx Emotional Abuse: No Hx Physical Abuse: No Hx Substance Use: No - SURGICAL HISTORY Hx Gastric Bypass Surgery: Yes - ANESTHESIA Hx Anesthesia: Yes Hx Anesthesia Reactions: No Hx Malignant Hyperthermia: No Meds Allergies/Adverse Reactions: Allergies Allergy/AdvReac Type Severity Reaction Status Date / Time No Known Allergies Allergy Verified 12/24/17 15:23 Physical Exam - Constitutional Appears: Non-toxic, No Acute Distress - Head Exam Head Exam: ATRAUMATIC - Eye Exam Eye Exam: Scleral icterus. absent: EOMI - ENT Exam ENT Exam: Mucous Membranes Moist - Respiratory Exam Respiratory Exam: NORMAL BREATHING PATTERN. absent: Accessory Muscle Use, Respiratory Distress - Cardiovascular Exam Cardiovascular Exam: +S1, +S2. absent: Bradycardia, Tachycardia - GI/Abdominal Exam GI & Abdominal Exam: Guarding, Rebound, Soft, Tenderness. absent: Distended, Firm, Hernia, Rigid Additional comments: tender to palpation in mid-epigastric voluntary guarding could not lay flat for exam because it was too painful - Extremities Exam Extremities exam: Positive for: normal inspection. Negative for: calf tenderness - Back Exam Back exam: absent: CVA tenderness (L), CVA tenderness (R) - Neurological Exam Neurological exam: Alert, Oriented x3 - Skin Skin Exam: Dry, Warm Results - Vital Signs Recent Vital Signs: Last Vital Signs Temp 98.5 F 12/24/17 15:27 Pulse 66 12/24/17 18:50 Resp 18 12/24/17 18:50 BP 145/53 L 12/24/17 18:50 Pulse Ox 96 12/24/17 18:50 - Labs Result Diagrams: 12/24/17 16:25 12/24/17 16:25 Labs: Laboratory Results - last 24 hr 12/24/17 12/24/17 12/24/17 16:25 16:25 16:25 WBC 5.7 D RBC 3.90 Hgb 12.0 Hct 37.5 MCV 96.2 MCH 30.8 MCHC 32.0 RDW 13.7 Plt Count 171 MPV 11.2 H Gran % 76.3 H Lymph % (Auto) 17.3 L [place] % (Auto) 5.3 Eos % (Auto) 0.7 L Baso % (Auto) 0.4 Gran # 4.36 Lymph # (Auto) 1.0 L [place] # (Auto) 0.3 Eos # (Auto) 0.0 Baso # (Auto) 0.02 PT INR APTT pO2 VBG pH VBG pCO2 VBG HCO3 VBG Total CO2 VBG O2 Sat (Calc) VBG Base Excess VBG Potassium Sodium 142 Chloride 107 Glucose Lactate FiO2 Potassium 4.7 Carbon Dioxide 25 Anion Gap 15 BUN 10 Creatinine 0.6 L Est GFR ( Amer) > 60 Est GFR (Non-Af Amer) > 60 Random Glucose 102 Calcium 9.5 Total Bilirubin 0.4 AST 28 ALT 28 Alkaline Phosphatase 84 Total Protein 6.5 Albumin 3.9 Globulin 2.6 Albumin/Globulin Ratio 1.5 Lipase 102 Venous Blood Potassium Urine Color Yellow Urine Appearance Clear Urine pH 6.0 Ur Specific [place] <= 1.005 Urine Protein Negative Urine Glucose (UA) Negative Urine Ketones Negative Urine Blood Negative Urine Nitrate Negative Urine Bilirubin Negative Urine Urobilinogen 0.2 Ur Leukocyte Esterase Small H Urine RBC Negative Urine WBC 2 - 5 Ur Epithelial Cells 3 - 4 Urine Bacteria Few 12/24/17 12/24/17 16:25 16:25 WBC RBC Hgb Hct MCV MCH MCHC RDW Plt Count MPV Gran % Lymph % (Auto) [place] % (Auto) Eos % (Auto) Baso % (Auto) Gran # Lymph # (Auto) [place] # (Auto) Eos # (Auto) Baso # (Auto) PT 10.1 INR 0.89 L APTT 28.4 pO2 28 L VBG pH 7.26 L VBG pCO2 60.0 VBG HCO3 26.9 VBG Total CO2 28.7 H VBG O2 Sat (Calc) 48.3 VBG Base Excess -1.4 L VBG Potassium 4.6 Sodium 139.0 Chloride 107.0 Glucose 102 Lactate 0.9 FiO2 21.0 Potassium Carbon Dioxide Anion Gap BUN Creatinine Est GFR ( Amer) Est GFR (Non-Af Amer) Random Glucose Calcium Total Bilirubin AST ALT Alkaline Phosphatase Total Protein Albumin Globulin Albumin/Globulin Ratio Lipase Venous Blood Potassium 4.6 Urine Color Urine Appearance Urine pH Ur Specific [place] Urine Protein Urine Glucose (UA) Urine Ketones Urine Blood Urine Nitrate Urine Bilirubin Urine Urobilinogen Ur Leukocyte Esterase Urine RBC Urine WBC Ur Epithelial Cells Urine Bacteria Assessment & Plan - Assessment and Plan (Free Text) Assessment: 67F hx gastric bypass complicated by anastomotic ulcer presents w/ recurrence of abd pain and partial small bowel obstruction Plan: - NPO - IVF - serial abd exam - if pt vomits will place NGT - pain control and Anti-emetic PRN - DVT ppx - further recs per Dr. Chayito Elliott PGY1
--- NOTE | 2017-12-24 21:21 | CT ---
EXAM: CT Abdomen and Pelvis With Intravenous Contrast EXAM DATE/TIME: 12/24/2017 5:07 PM CLINICAL HISTORY: 67 years old, female; Pain; Abdominal pain; Other: Pain mid abdomen; Prior surgery; Surgery date: 6+ months; Surgery type: Gb, hyst, gastric bypass TECHNIQUE: Axial computed tomography images of the abdomen and pelvis with intravenous contrast. All CT scans at this facility use one or more dose reduction techniques, viz.: automated exposure control; ma/kV adjustment per patient size (including targeted exams where dose is matched to indication; i.e. head); or iterative reconstruction technique. Coronal and sagittal reformatted images were created and reviewed. CONTRAST: 93 mL of OMNIPAQUE 350 administered intravenously. COMPARISON: Prior CT abdomen and pelvis of 2017-11-12 FINDINGS: LOWER THORAX: Heart appears mildly enlarged. ABDOMEN: LIVER: No acute abnormality of the liver identified. GALLBLADDER AND BILE DUCTS: Diffuse biliary ductal dilatation. This was also seen on the prior CT, and involves the intrahepatic bile ducts as well as the common bile duct, which measures up to 1.2 cm in diameter. It may be secondary to the postcholecystectomy state. No radiopaque common bile duct stones are visualized. Cholecystectomy clips. PANCREAS: No CT evidence of acute pancreatitis. SPLEEN: No acute abnormality of the spleen identified. ADRENALS: No acute abnormality of the adrenal glands identified. KIDNEYS AND URETERS: Low density lesion in the left kidney, most likely a cyst. This measures 1.4 cm. No acute abnormality of the kidneys identified. STOMACH AND BOWEL: Postsurgical changes involving the stomach and left abdomen, with an appearance most compatible with previous gastric bypass surgery. Findings highly suspicious for a small bowel obstruction. There are multiple mildly to moderately dilated small bowel loops seen, mainly in the left lower abdomen and pelvis, a new finding. There is also fecalization of multiple small bowel loops. There are normal caliber to mildly decompressed distal small bowel loops seen. Transition point is probably seen, within a small bowel loop in the anterior abdomen, images 91-107 of series 602 , where there is a change in caliber of the small bowel. No definite mass is identified at the transition point. There is no evidence of focal enteritis of the transition point. An adhesive small bowel obstruction could have this appearance. No acute abnormality of the colon identified. No acute abnormality of the gastric pouch or excluded portion of the stomach identified. APPENDIX: Normal appendix is not seen, however, there are no significant inflammatory changes visualized in the expected location of the appendix to suggest appendicitis. Recommend clinical correlation. PELVIS: BLADDER: No acute abnormality of the bladder identified. REPRODUCTIVE: Uterus is surgically absent. No evidence of large adnexal masses. ABDOMEN and PELVIS: INTRAPERITONEAL SPACE: Small amount of pelvic free fluid, a new finding. No evidence of free air. No evidence of free air. BONES/JOINTS: Lucent lesion within the T11 vertebra, most likely a vertebral hemangioma. Bony structures appear demineralized. Osteoarthritic changes involving the right hip. SOFT TISSUES: No acute abnormality of the visualized soft tissues is seen. VASCULATURE: No evidence of abdominal aortic aneurysm. No evidence of periaortic hemorrhage. LYMPH NODES: No evidence of diffuse lymphadenopathy. IMPRESSION: - FINDINGS HIGHLY SUSPICIOUS FOR A SMALL BOWEL OBSTRUCTION. PLEASE SEE ABOVE FOR A FULL DESCRIPTION. - Small amount of pelvic free fluid. - Evidence of prior gastric bypass surgery. - See above for remaining findings.
[2017-12-24] MEDS ORDERED: HYDROmorphone 1 mg/ml ISec IVP PRN (23:06)
[2017-12-25] MEDS: HYDROmorphone 2 mg/ml ISec IVP PRN ×3 (00:04→08:12)
[2017-12-25] MEDS: Sodium Chloride 0.9% 1,000 ML IV SCH ×2 (00:05→22:36)
--- NOTE | 2017-12-25 01:13 | ED PDOC ---
Arrival/HPI - General Chief Complaint: Abdominal Pain Time Seen by Provider: 12/24/17 16:00 Historian: Patient, Family - History of Present Illness Narrative History of Present Illness (Text): 67-year-old female with a history of gastric bypass and prior small bowel shocks and presents today with a sudden onset of severe sharp stabbing mid abdominal pain and nausea. Patient states the pain is sharp and stabbing and radiates to the back. Patient states this is the exact same pain that she had in October when she had a small bowel obstruction. Patient states she is being followed by Dr. Stratton and Dr. Zamarripa. Patient denies chest pain or shortness of breath. Patient states the pain is worse with movement. Patient states her last bowel movement was this morning. Patient states the pain started suddenly at 1:30 PM today after eating breakfast. Symptom Onset: Sudden Symptom Course: Unchanged Quality: Stabbing Severity Level: 10, Severe Past Medical History - Provider Review Nursing Documentation Reviewed: Yes - Travel History Have you recently traveled outside [place] w/in the past 3 mons?: No - Infectious Disease Hx of Infectious Diseases: None - Tetanus Immunization Tetanus Immunization: Unknown - Cardiac Hx Pacemaker: No - Pulmonary Other/Comment: lung nodule, right lung, follows up every [address] young - Neurological Hx Paralysis: No - HEENT Other/Comment: wears reading glasses - Hematological/Oncological Hx Anemia: Yes - Musculoskeletal/Rheumatological Hx Musculoskeletal Disorders: Yes Hx Falls: No - Gastrointestinal Other/Comment: pt neal been following a liquid and baby food diet due to gastric ulcer as per dr zamarripa. Pt had gastric bypass 2006, weighd 255 lbs, pt lost 100 lbs. has lost in the last 7 [id number] lbs and then. another 17, due to tx for gastric ulcer. pt needs to be on liquids and baby food for 2 months. pt needs to eat q2h - Psychiatric Hx Emotional Abuse: No Hx Physical Abuse: No Hx Substance Use: No - Surgical History Hx Gastric Bypass Surgery: Yes - Anesthesia Hx Anesthesia: Yes Hx Anesthesia Reactions: No Hx Malignant Hyperthermia: No - Suicidal Assessment Feels Threatened In Home Enviroment: No Family/Social History - Physician Review Nursing Documentation Reviewed: Yes Family/Social History: Unknown Family HX Smoking Status: Former Smoker Hx Alcohol Use: No Hx Substance Use: No Allergies/Home Meds Allergies/Adverse Reactions: Allergies No Known Allergies Allergy (Verified 12/24/17 15:23) Home Medications: Home Meds Medication Instructions Recorded Confirmed Lansoprazole [Prevacid] 30 mg PO BID 08/06/16 12/24/17 oxyCODONE/Acetaminophen [Percocet 10 mg PO Q8H 12/12/16 12/24/17 5/325 mg Tab] Review of Systems - Review of Systems Constitutional: absent: Fatigue, Fevers Respiratory: absent: SOB, Cough Cardiovascular: absent: Chest Pain, Palpitations Gastrointestinal: Abdominal Pain, Nausea. absent: Constipation, Diarrhea, Vomiting Genitourinary Female: absent: Dysuria, Frequency Musculoskeletal: Back Pain. absent: Arthralgias, Neck Pain Skin: absent: Rash Neurological: absent: Headache, Dizziness Psychiatric: absent: Anxiety, Depression Physical Exam Vital Signs Reviewed: Yes Vital Signs Temp Pulse Resp BP Pulse Ox 12/24/17 22:49 57 L 15 141/68 98 12/24/17 20:49 62 16 145/68 95 12/24/17 18:50 66 18 145/53 L 96 12/24/17 16:27 57 L 20 149/82 98 12/24/17 15:27 98.5 F 56 L 21 171/78 H 98 12/24/17 15:24 98.5 F 56 L 21 171/78 H 99 Temperature: Afebrile Blood Pressure: Hypertensive Pulse: Regular Respiratory Rate: Normal Appearance: Positive for: Well-Appearing, Non-Toxic, Uncomfortable Pain Distress: Moderate Mental Status: Positive for: Alert and Oriented X 3 - Systems Exam Head: Present: Atraumatic Mouth: Present: Moist Mucous Membranes Neck: Present: Normal Range of Motion Respiratory/Chest: Present: Clear to Auscultation. No: Good Air Exchange, Respiratory Distress, Accessory Muscle Use Cardiovascular: Present: Regular Rate and Rhythm, Normal S1, S2. No: Murmurs Abdomen: Present: Tenderness, Guarding. No: Distention, McBurney's Point Tender Back: Present: Normal Inspection, Paraspinal Tenderness. No: Midline Tenderness Upper Extremity: Present: Normal ROM Lower Extremity: Present: Normal ROM Neurological: Present: GCS=15, Speech Normal Skin: Present: Warm, Dry, Normal Color. No: Rashes Psychiatric: Present: Alert, Oriented x 3 Medical Decision Making ED Course and Treatment: 12/25/17 01:14 Patient w/ stable vital signs presenting with severe stabbing mid upper abdominal pain. Patient writhing in severe 10 out of 10 stabbing abdominal pain. Patient was seen and evaluated by Dr. CHINO at bedside. Patient given 1 mg of Dilaudid without improvement. Patient was then given 2 mg of Dilaudid with minimal improvement. Case was discussed with Dr. Stratton. He advised CAT scan with by mouth and IV contrast. He states that he will have the resident see the patient. CBC wnl CMPwnl lactate; wnl; cxr; wnl ekg; sinus rhythm at 68b/m with PACs, no st elevations. Urinalysis trace leukocytes CAT scan: FINDINGS: LOWER THORAX: Heart appears mildly enlarged. ABDOMEN: LIVER: No acute abnormality of the liver identified. GALLBLADDER AND BILE DUCTS: Diffuse biliary ductal dilatation. This was also seen on the prior CT, and involves the intrahepatic bile ducts as well as the common bile duct, which measures up to 1.2 cm in diameter. It may be secondary to the postcholecystectomy state. No radiopaque common bile duct stones are visualized. Cholecystectomy clips. PANCREAS: No CT evidence of acute pancreatitis. SPLEEN: No acute abnormality of the spleen identified. ADRENALS: No acute abnormality of the adrenal glands identified. KIDNEYS AND URETERS: Low density lesion in the left kidney, most likely a cyst. This measures 1.4 cm. No acute abnormality of the kidneys identified. STOMACH AND BOWEL: Postsurgical changes involving the stomach and left abdomen, with an appearance most compatible with previous gastric bypass surgery. Findings highly suspicious for a small bowel obstruction. There are multiple mildly to moderately dilated small bowel loops seen, mainly in the left lower abdomen and pelvis, a new finding. There is also fecalization of multiple small bowel loops. There are normal caliber to mildly decompressed distal small bowel loops seen. Transition point is probably seen, within a small bowel loop in the anterior abdomen, images 91-107 of series 602 , where there is a change in caliber of the small bowel. No definite mass is identified at the transition point. There is no evidence of focal enteritis of the transition point. An adhesive small bowel obstruction could have this appearance. No acute abnormality of the colon identified. No acute abnormality of the gastric pouch or excluded portion of the stomach identified. APPENDIX: Normal appendix is not seen, however, there are no significant inflammatory changes visualized in the expected location of the appendix to suggest appendicitis. Recommend clinical correlation. PELVIS: BLADDER: No acute abnormality of the bladder identified. REPRODUCTIVE: Uterus is surgically absent. No evidence of large adnexal masses. ABDOMEN and PELVIS: INTRAPERITONEAL SPACE: Small amount of pelvic free fluid, a new finding. No evidence of free air. No evidence of free air. BONES/JOINTS: Lucent lesion within the T11 vertebra, most likely a vertebral hemangioma. Bony structures appear demineralized. Osteoarthritic changes involving the right hip. SOFT TISSUES: No acute abnormality of the visualized soft tissues is seen. VASCULATURE: No evidence of abdominal aortic aneurysm. No evidence of periaortic hemorrhage. LYMPH NODES: No evidence of diffuse lymphadenopathy. IMPRESSION: - FINDINGS HIGHLY SUSPICIOUS FOR A SMALL BOWEL OBSTRUCTION. PLEASE SEE ABOVE FOR A FULL DESCRIPTION. - Small amount of pelvic free fluid. - Evidence of prior gastric bypass surgery. - See above for remaining findings. Patient reassessment: pt with continued pain; requiring multiple doses of dilaudid for pain. case was discussed with assembler surgical garment dr. Pedro Laura. He states Dr. Stratton advised him of the case. He states he will alert Dr. Berger of the official CAT scan results. Discussed all results with patient in depth Case was discussed in depth with the patient's primary care physician Dr. stephanie Foster; accepts admission to med/surg with surgery and GI consult. Impression: SBO admit to med/surg Reassessment Condition: Re-examined, Improving,but remains with symptoms - Lab Interpretations Lab Results: 12/24/17 16:25 12/24/17 16:25 Lab Results 12/24/17 16:25: PT 10.1, INR 0.89 L, APTT 28.4 12/24/17 16:25: pO2 28 L, VBG pH 7.26 L, VBG pCO2 60.0, VBG HCO3 26.9, VBG Total CO2 28.7 H, VBG O2 Sat (Calc) 48.3, VBG Base Excess -1.4 L, VBG Potassium 4.6, Sodium 139.0, Chloride 107.0, Glucose 102, Lactate 0.9, FiO2 21.0, Venous Blood Potassium 4.6 12/24/17 16:25: WBC 5.7 D, RBC 3.90, Hgb 12.0, Hct 37.5, MCV 96.2, MCH 30.8, MCHC 32.0, RDW 13.7, Plt Count 171, MPV 11.2 H, Gran % 76.3 H, Lymph % (Auto) 17.3 L, [place] % (Auto) 5.3, Eos % (Auto) 0.7 L, Baso % (Auto) 0.4, Gran # 4.36, Lymph # (Auto) 1.0 L, [place] # (Auto) 0.3, Eos # (Auto) 0.0, Baso # (Auto) 0.02 12/24/17 16:25: Sodium 142, Chloride 107, Potassium 4.7, Carbon Dioxide 25, Anion Gap 15, BUN 10, Creatinine 0.6 L, Est GFR ( Amer) > 60, Est GFR ( Non-Af Amer) > 60, Random Glucose 102, Calcium 9.5, Total Bilirubin 0.4, AST 28 , ALT 28, Alkaline Phosphatase 84, Total Protein 6.5, Albumin 3.9, Globulin 2.6 , Albumin/Globulin Ratio 1.5, Lipase 102 12/24/17 16:25: Urine Color Yellow, Urine Appearance Clear, Urine pH 6.0, Ur Specific [place] <= 1.005, Urine Protein Negative, Urine Glucose (UA) Negative, Urine Ketones Negative, Urine Blood Negative, Urine Nitrate Negative, Urine Bilirubin Negative, Urine Urobilinogen 0.2, Ur Leukocyte Esterase Small H, Urine RBC Negative, Urine WBC 2 - 5, Ur Epithelial Cells 3 - 4, Urine Bacteria Few - RAD Interpretation Radiology Orders: 12/24/17 16:01 CHEST PORTABLE [RAD] Stat 12/24/17 17:07 ABD PELVIS PO & IV CONTRAST [CT] Stat - Medication Orders Current Medication Orders: Hydromorphone HCl (Dilaudid) 1 mg IVP Q4H PRN PRN Reason: Pain, moderate (4-7) Last Admin: 12/25/17 00:04 Dose: 1 mg MAR Pain Assessment Document 12/25/17 00:04 BR (Rec: 12/25/17 00:05 BR [facility] [place]-[id number]) Pain Reassessment Is this a pain reassessment? No Presence of Pain Presence of Pain Yes IVP Administration Document 12/25/17 00:04 BR (Rec: 12/25/17 00:05 BR [facility] [place]-[id number]) Charges for Administration # of IVP Administrations 1 Sodium Chloride (Sodium Chloride 0.9%) 1,000 mls @ 100 mls/hr IV .Q10H VI Last Admin: 12/25/17 00:05 Dose: 100 mls/hr eMAR Start Stop Document 12/25/17 00:05 BR (Rec: 12/25/17 00:05 BR [facility] [id number]) Intravenous Solution Start Date 12/25/17 Start Time 00:05 Ondansetron HCl (Zofran Inj) 4 mg IVP Q6H PRN PRN Reason: Nausea/Vomiting Last Admin: 12/25/17 00:05 Dose: 4 mg IVP Administration Document 12/25/17 00:05 BR (Rec: 12/25/17 00:05 BR [facility] [place]-[id number]) Charges for Administration # of IVP Administrations 1 Discontinued Medications Hydromorphone HCl (Dilaudid) 1 mg IVP STAT STA Stop: 12/24/17 16:04 Last Admin: 12/24/17 16:29 Dose: 1 mg [facility] Pain Assessment Document 12/24/17 16:29 HI (Rec: 12/24/17 16:29 HI [facility] [id number]) Pain Reassessment Is this a pain reassessment? No Presence of Pain Presence of Pain Yes Pain Scale Used Pain Scale Used Numeric IVP Administration Document 12/24/17 16:29 HI (Rec: 12/24/17 16:29 HI [facility] [id number]) Charges for Administration # of IVP Administrations 1 Re-Assess: MAR Pain Assessment Document 12/24/17 17:29 HI (Rec: 12/24/17 19:24 HI [facility] [id number]) Pain Reassessment Is this a pain reassessment? Yes Presence of Pain Presence of Pain No Hydromorphone HCl (Dilaudid) 1 mg IVP STAT STA Stop: 12/24/17 16:39 Last Admin: 12/24/17 16:49 Dose: 1 mg MAR Pain Assessment Document 12/24/17 16:49 HI (Rec: 12/24/17 16:49 HI [facility] [id number]) Pain Reassessment Is this a pain reassessment? No IVP Administration Document 12/24/17 16:49 HI (Rec: 12/24/17 16:49 HI [facility] [id number]) Charges for Administration # of IVP Administrations 1 Re-Assess: MAR Pain Assessment Document 12/24/17 17:49 HI (Rec: 12/24/17 19:33 HI [facility] [id number]) Pain Reassessment Is this a pain reassessment? Yes Presence of Pain Presence of Pain No Hydromorphone HCl (Dilaudid) 1 mg IVP STAT STA Stop: 12/24/17 16:43 Last Admin: 12/24/17 16:49 Dose: 1 mg MAR Pain Assessment Document 12/24/17 16:49 HI (Rec: 12/24/17 17:10 HI [facility] [place]-[id number]) Pain Reassessment Is this a pain reassessment? No Presence of Pain Presence of Pain Yes IVP Administration Document 12/24/17 16:49 HI (Rec: 12/24/17 17:10 HI [id number]) Charges for Administration # of IVP Administrations 1 Re-Assess: MAR Pain Assessment Document 12/24/17 17:49 HI (Rec: 12/24/17 19:25 HI [facility] [id number]) Pain Reassessment Is this a pain reassessment? Yes Hydromorphone HCl (Dilaudid) 2 mg IVP STAT STA Stop: 12/24/17 19:17 Last Admin: 12/24/17 19:30 Dose: 2 mg MAR Pain Assessment Document 12/24/17 19:30 HI (Rec: 12/24/17 19:30 HI [facility] [id number]) Pain Reassessment Is this a pain reassessment? Yes IVP Administration Document 12/24/17 19:30 HI (Rec: 12/24/17 19:30 HI [id number]) Charges for Administration # of IVP Administrations 1 Hydromorphone HCl (Dilaudid) 1 mg IVP STAT STA Stop: 12/24/17 22:07 Last Admin: 12/24/17 22:14 Dose: 1 mg MAR Pain Assessment Document 12/24/17 22:14 HI (Rec: 12/24/17 22:14 HI [id number]) Pain Reassessment Is this a pain reassessment? No IVP Administration Document 12/24/17 22:14 HI (Rec: 12/24/17 22:14 [id number]) Charges for Administration # of IVP Administrations 1 Hydromorphone HCl (Dilaudid) 1 mg IVP Q4H PRN PRN Reason: Pain, moderate (4-7) Sodium Chloride (Sodium Chloride 0.9%) 500 mls @ 999 mls/hr IV .Q31M STA Stop: 12/24/17 16:33 Last Admin: 12/24/17 16:28 Dose: 999 mls/hr eMAR Start Stop Document 12/24/17 16:28 HI (Rec: 12/24/17 16:28 [id number]) Intravenous Solution Start Date 12/24/17 Start Time 16:28 Sodium Chloride (Sodium Chloride 0.9%) 500 mls @ 999 mls/hr IV .Q31M STA Stop: 12/24/17 22:05 Last Admin: 12/24/17 22:13 Dose: 999 mls/hr eMAR Start Stop Document 12/24/17 22:13 HI (Rec: 12/24/17 22:13 [id number]) Intravenous Solution Start Date 12/24/17 Start Time 22:13 Ondansetron HCl (Zofran Inj) 4 mg IVP STAT STA Stop: 12/24/17 16:41 Last Admin: 12/24/17 16:49 Dose: 4 mg IVP Administration Document 12/24/17 16:49 HI (Rec: 12/24/17 16:50 [id number]) Charges for Administration # of IVP Administrations 1 Ondansetron HCl (Zofran Inj) 4 mg IVP STAT STA Stop: 12/24/17 19:27 Last Admin: 12/24/17 19:31 Dose: 4 mg IVP Administration Document 12/24/17 19:31 HI (Rec: 12/24/17 19:31 [id number]) Charges for Administration # of IVP Administrations 1 Disposition/Present on Arrival - Present on Arrival Any Indicators Present on Arrival: No History of DVT/PE: No History of Uncontrolled Diabetes: No Urinary Catheter: No History of Decub. Ulcer: No History Surgical Site Infection Following: None - Disposition Have Diagnosis and Disposition been Completed?: Yes Diagnosis: Small bowel obstruction Disposition: HOSPITALIZED Disposition Time: 21:35 Patient Plan: Admission Condition: FAIR
--- NOTE | 2017-12-25 02:11 | CP.PCM.PN ---
Subjective - Date & Time of Evaluation Date of Evaluation: 12/25/17 Time of Evaluation: 02:08 - Subjective Subjective: S:Patient was seen at bedside. She requested a sleeping pill. States that she gets Xanax 0.5 mg from her PMD for sleep. She takes Xanax sometimes when she can not sleep. She is NPO. Medical record was reviewed. O: Last Vital Signs 3 Temp 98.5 F 12/24/17 15:27 Pulse 57 L 12/24/17 22:49 Resp 20 12/25/17 00:16 BP 141/68 12/24/17 22:49 Pulse Ox 98 12/24/17 22:49 Awake, alert, not in distress. LUNGS:Normal breathing pattern. A: Adjustment insomnia. P:Ativan 0.25 mg I V x 1. Objective - Vital Signs/Intake and Output Vital Signs (last 24 hours): Temp Pulse Resp BP Pulse Ox 98.5 F 57 L 20 141/68 98 12/24/17 15:27 12/24/17 22:49 12/25/17 00:16 12/24/17 22:49 12/24/17 22:49 - Medications Medications: Current Medications Hydromorphone HCl (Dilaudid) 1 mg IVP Q4H PRN PRN Reason: Pain, moderate (4-7) Last Admin: 12/25/17 00:04 Dose: 1 mg Sodium Chloride (Sodium Chloride 0.9%) 1,000 mls @ 100 mls/hr IV .Q10H VI Last Admin: 12/25/17 00:05 Dose: 100 mls/hr Ondansetron HCl (Zofran Inj) 4 mg IVP Q6H PRN PRN Reason: Nausea/Vomiting Last Admin: 12/25/17 00:05 Dose: 4 mg - Labs Labs: PT 10.1 SECONDS (9.4-12.5) 12/24/17 16:25 INR 0.89 (0.93-1.08) L 12/24/17 16:25 APTT 28.4 Seconds (25.1-36.5) 12/24/17 16:25
[2017-12-25 07:15] LABS: HEMOGLOBIN 10.2 g/dL (12.0-16.0); MEAN CELL VOLUME 96.7 fl (80.0-105.0); MEAN CORPUSCULAR HEMOGLOBIN 30.2 pg (25.0-35.0); MEAN CORPUSCULAR HGB CONC 31.2 g/dl (31.0-37.0); MEAN PLATELET VOLUME 10.9 fl (7.0-11.0); RBC 3.38 10^6/uL (3.5-6.1); RED CELL DISTRIBUTION WIDTH 13.8 % (11.5-14.5); WHITE BLOOD COUNT 6.2 10^3/ul (4.5-11.0)
[2017-12-25 08:11] LABS: ALB/GLOB RATIO 1.5 (1.1-1.8); ALBUMIN 3.1 g/dL (3.0-4.8); ALT/SGPT 26 U/L (7-56); AST/SGOT 25 U/L (14-36); BLOOD UREA NITROGEN 9 mg/dL (7-21); CALCIUM 8.8 mg/dL (8.4-10.5); GFR AFRICAN-AMERICAN > 60; GFR NON-AFRICAN AMERICAN > 60
--- NOTE | 2017-12-25 12:45 | CP.PCM.PN ---
Subjective - Date & Time of Evaluation Date of Evaluation: 12/25/17 Time of Evaluation: 07:10 - Subjective Subjective: Patient seen and examined at bedside. Patient had continued nausea and epigastric abdominal pian but no vomiting. Patient stated she passed gas overnight but no bowel movement. Objective - Vital Signs/Intake and Output Vital Signs (last 24 hours): Temp Pulse Resp BP Pulse Ox 98.6 F 57 L 18 126/62 99 12/25/17 07:30 12/25/17 07:30 12/25/17 07:30 12/25/17 07:30 12/25/17 07:30 Intake and Output: 12/25/17 12/25/17 06:59 18:59 Intake Total 120 Output Total 0 Balance 120 - Medications Medications: Current Medications Hydromorphone HCl (Dilaudid) 1 mg IVP Q4H PRN PRN Reason: Pain, moderate (4-7) Last Admin: 12/25/17 09:49 Dose: 1 mg Sodium Chloride (Sodium Chloride 0.9%) 1,000 mls @ 100 mls/hr IV .Q10H VI Last Admin: 12/25/17 00:05 Dose: 100 mls/hr Ondansetron HCl (Zofran Inj) 4 mg IVP Q6H PRN PRN Reason: Nausea/Vomiting Last Admin: 12/25/17 09:49 Dose: 4 mg - Labs Labs: 12/25/17 06:30 12/25/17 06:30 PT 10.1 SECONDS (9.4-12.5) 12/24/17 16:25 INR 0.89 (0.93-1.08) L 12/24/17 16:25 APTT 28.4 Seconds (25.1-36.5) 12/24/17 16:25 - Constitutional Appears: Well, Non-toxic, In Acute Distress - Head Exam Head Exam: ATRAUMATIC, NORMOCEPHALIC - Eye Exam Eye Exam: Normal appearance - ENT Exam ENT Exam: Mucous Membranes Moist - Respiratory Exam Respiratory Exam: NORMAL BREATHING PATTERN. absent: Accessory Muscle Use, Respiratory Distress - Cardiovascular Exam Cardiovascular Exam: REGULAR RHYTHM - GI/Abdominal Exam GI & Abdominal Exam: Soft, Tenderness (epigastric and LUQ moderate tenderness). absent: Distended - Extremities Exam Extremities Exam: absent: Calf Tenderness, Pedal Edema, Tenderness - Neurological Exam Neurological Exam: Alert, Awake, Oriented x3 - Psychiatric Exam Psychiatric exam: Normal Affect, Normal Mood - Skin Skin Exam: Dry, Normal Color, Warm Assessment and Plan - Assessment and Plan (Free Text) Assessment: 67F hx gastric bypass complicated by previous anastomotic ulcer presents w/ recurrence of abd pain Plan: - F/U GI plan and recommendations - F/U abdominal XR - Advance diet per GI recommendations - IVF until PO intake adequate - serial abd exam - if pt vomits will place NGT - pain control and Anti-emetic PRN - DVT ppx - Patient should follow up with the surgeon who performed the gastric bypass for evaluation and management - No intervention from general surgery indicated at the present time Seen and discussed with DR. Stratton
--- NOTE | 2017-12-25 13:20 | RAD ---
HISTORY: FU SBO COMPARISON: No prior. FINDINGS: BOWEL: Normal. No obstruction. No free air. Residual contrast is seen in the colon which is normal in caliber. No evidence of small bowel obstruction BONES: Normal. OTHER FINDINGS: None. IMPRESSION: No active disease.
--- NOTE | 2017-12-25 16:19 | CARD ---
APPROVED REPORT EKG Measurement Heart [id number] <Conclusion> Sinus rhythm with premature atrial complexes Possible Left atrial enlargement Borderline ECG
--- NOTE | 2017-12-25 16:32 | CP.PCM.CON ---
<Arlen Polk - Last Filed: 12/25/17 16:31> History of Present Illness - History of Present Illness History of Present Illness: Seen and examined at the bedside earlier today, chart review. Request for GI consultation is for SBO. 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 This patient is known to our service from her outpatient office and previous admission. The patient came to the emergency room with complaints of mid epigastric sharp pain radiating to her back after eating breakfast. The patient did complain of nausea with an episode of nonbilious/bloody emesis. The patient did report having 2 bowel movements before this and has yet to have a bowel movement since admission. She did report having flatus. On admission she rated her pain from 12/10 and this morning she rates it as 6-1/2 over 10. She denies any fever or chills, sick contacts. No complaints of shortness of breath chest pain or any recent nausea or vomiting. On admission she had a CT scan of abdomen and pelvis and this reported suspicion for small bowel obstruction as well as stool in the small bowel, the transition point is probably seen within the small bowel loop in the anterior abdomen. No mass was seen at this point. No evidence of focal enteritis at the transition point. See [facility] for full report. PMH:Back pain PSH: gastric bypass, complicated with multiple strictures and perianastomotic ulcer, 02/2017 laparascopic ulcer resection, cholecystectomy, right knee replacement,hysterectomy, last EGD was 01/2017, last colon was 2010, no colon polyps. Social HX: tobacco use in the past, denies etoh/drugs Allergies: hydromorphine HCL Family HX: noncontributory at this time MEDS: reviewed s per MAR ROS: systems reviewed with positive findings Past Patient History - Infectious Disease Hx of Infectious Diseases: None - Tetanus Immunizations Tetanus Immunization: Unknown - Past Social History Smoking Status: Former Smoker - CARDIAC Hx Pacemaker: No - PULMONARY Other/Comment: lung nodule, right lung, follows up every [address] young - NEUROLOGICAL Hx Paralysis: No - HEENT Other/Comment: wears reading glasses - HEMATOLOGICAL/ONCOLOGICAL Hx Anemia: Yes - MUSCULOSKELETAL/RHEUMATOLOGICAL Hx Musculoskeletal Disorders: Yes Hx Falls: No - GASTROINTESTINAL Other/Comment: pt neal been following a liquid and baby food diet due to gastric ulcer as per dr zamarripa. Pt had gastric bypass 2006, weighd 255 lbs, pt lost 100 lbs. has lost in the last 7 [id number] lbs and then. another 17, due to tx for gastric ulcer. pt needs to be on liquids and baby food for 2 months. pt needs to eat q2h - PSYCHIATRIC Hx Emotional Abuse: No Hx Physical Abuse: No Hx Substance Use: No - SURGICAL HISTORY Hx Gastric Bypass Surgery: Yes - ANESTHESIA Hx Anesthesia: Yes Hx Anesthesia Reactions: No Hx Malignant Hyperthermia: No Meds Allergies/Adverse Reactions: Allergies Allergy/AdvReac Type Severity Reaction Status Date / Time No Known Allergies Allergy Verified 12/24/17 15:23 - Medications Medications: Current Medications Hydromorphone HCl (Dilaudid) 1 mg IVP Q4H PRN PRN Reason: Pain, moderate (4-7) Last Admin: 12/25/17 14:16 Dose: 1 mg Sodium Chloride (Sodium Chloride 0.9%) 1,000 mls @ 100 mls/hr IV .Q10H VI Last Admin: 12/25/17 00:05 Dose: 100 mls/hr Ondansetron HCl (Zofran Inj) 4 mg IVP Q6H PRN PRN Reason: Nausea/Vomiting Last Admin: 12/25/17 14:17 Dose: 4 mg Physical Exam - Constitutional Appears: No Acute Distress - Head Exam Head Exam: NORMOCEPHALIC - Eye Exam Eye Exam: Normal appearance. absent: Scleral icterus - ENT Exam ENT Exam: Mucous Membranes Moist - Neck Exam Neck exam: Positive for: Normal Inspection - Respiratory Exam Respiratory Exam: NORMAL BREATHING PATTERN. absent: Respiratory Distress - Cardiovascular Exam Cardiovascular Exam: +S1, +S2 - GI/Abdominal Exam GI & Abdominal Exam: Hypoactive Bowel Sounds, Soft, Tenderness (epigastric diffuse to left upper quadrant no rebound or guarding). absent: Distended, Guarding, Rebound - Extremities Exam Extremities exam: Positive for: pedal pulses present. Negative for: calf tenderness, pedal edema - Neurological Exam Neurological exam: Alert, Oriented x3 - Skin Skin Exam: Dry, Warm Results - Vital Signs Recent Vital Signs: Last Vital Signs Temp 98.6 F 12/25/17 07:30 Pulse 57 L 12/25/17 07:30 Resp 18 12/25/17 07:30 BP 126/62 12/25/17 07:30 Pulse Ox 99 12/25/17 07:30 - Labs Result Diagrams: 12/25/17 06:30 12/25/17 06:30 Labs: Laboratory Results - last 24 hr 12/24/17 12/25/17 12/25/17 22:32 02:25 06:30 WBC 6.2 RBC 3.38 L Hgb 10.2 L Hct 32.7 L MCV 96.7 MCH 30.2 MCHC 31.2 RDW 13.8 Plt Count 152 MPV 10.9 Sodium Potassium Chloride Carbon Dioxide Anion Gap BUN Creatinine Est GFR ( Amer) Est GFR (Non-Af Amer) Random Glucose Calcium Total Bilirubin AST ALT Alkaline Phosphatase Total Protein Albumin Globulin Albumin/Globulin Ratio Blood Type A POSITIVE Blood Type Confirm A POSITIVE Antibody Screen Negative BBK History Checked No verified bt 12/25/17 06:30 WBC RBC Hgb Hct MCV MCH MCHC RDW Plt Count MPV Sodium 143 Potassium 4.2 Chloride 109 H Carbon Dioxide 26 Anion Gap 12 BUN 9 Creatinine 0.7 Est GFR ( Amer) > 60 Est GFR (Non-Af Amer) > 60 Random Glucose 93 Calcium 8.8 Total Bilirubin 0.3 AST 25 ALT 26 Alkaline Phosphatase 66 Total Protein 5.2 L Albumin 3.1 Globulin 2.1 Albumin/Globulin Ratio 1.5 Blood Type Blood Type Confirm Antibody Screen BBK History Checked Assessment & Plan - Assessment and Plan (Free Text) Assessment: Assessment: Abdominal pain Small bowel obstruction History of gastric bypass with 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 Thank you for this consult and for allowing us to participate in your patient's care, further recommendations based upon clinical course. Seen and discussed with Dr. Zamarripa. <Jackie Zamarripa V - Last Filed: 12/26/17 00:16> Meds - Medications Medications: Current Medications Hydromorphone HCl (Dilaudid) 1 mg IVP Q4H PRN PRN Reason: Pain, moderate (4-7) Last Admin: 12/25/17 19:49 Dose: 1 mg Sodium Chloride (Sodium Chloride 0.9%) 1,000 mls @ 100 mls/hr IV .Q10H VI Last Admin: 12/25/17 22:36 Dose: 100 mls/hr Ondansetron HCl (Zofran Inj) 4 mg IVP Q6H PRN PRN Reason: Nausea/Vomiting Last Admin: 12/25/17 19:49 Dose: 4 mg Results - Vital Signs Recent Vital Signs: Last Vital Signs Temp 98.2 F 12/25/17 16:00 Pulse 60 12/25/17 16:00 Resp 20 12/25/17 16:00 BP 126/72 12/25/17 16:00 Pulse Ox 93 L 12/25/17 16:00 - Labs Result Diagrams: 12/25/17 06:30 12/25/17 06:30 Labs: Laboratory Results - last 24 hr 12/24/17 12/25/17 12/25/17 22:32 02:25 06:30 WBC 6.2 RBC 3.38 L Hgb 10.2 L Hct 32.7 L MCV 96.7 MCH 30.2 MCHC 31.2 RDW 13.8 Plt Count 152 MPV 10.9 Sodium Potassium Chloride Carbon Dioxide Anion Gap BUN Creatinine Est GFR ( Amer) Est GFR (Non-Af Amer) Random Glucose Calcium Total Bilirubin AST ALT Alkaline Phosphatase Total Protein Albumin Globulin Albumin/Globulin Ratio Blood Type A POSITIVE Blood Type Confirm A POSITIVE Antibody Screen Negative 12/25/17 06:30 WBC RBC Hgb Hct MCV MCH MCHC RDW Plt Count MPV Sodium 143 Potassium 4.2 Chloride 109 H Carbon Dioxide 26 Anion Gap 12 BUN 9 Creatinine 0.7 Est GFR ( Amer) > 60 Est GFR (Non-Af Amer) > 60 Random Glucose 93 Calcium 8.8 Total Bilirubin 0.3 AST 25 ALT 26 Alkaline Phosphatase 66 Total Protein 5.2 L Albumin 3.1 Globulin 2.1 Albumin/Globulin Ratio 1.5 Blood Type Blood Type Confirm Antibody Screen Attending/Attestation - Attestation I have personally seen and examined this patient.: Yes I have fully participated in the care of the patient.: Yes I have reviewed all pertinent clinical information: Yes Notes (Text): This is an addendum to GI progress report dictated by Arlen Polk APN.The patient was seen and examined earlier. Medical records, lab studies, imagings were reviewed. Last 24 hours events reviewed. Agreed with the above treatment plan as outlined in Arlen Polk APN's notes the with the addition of the following 12/26/17 00:16
[2017-12-25 19:10] VITALS: RESP 20
[2017-12-25] MEDS ORDERED: DiphenhydrAMINE 50 mg/ml Inj IVP STA (21:07)
--- NOTE | 2017-12-25 21:09 | CP.PCM.PN ---
Subjective - Date & Time of Evaluation Date of Evaluation: 12/25/17 Time of Evaluation: 21:08 - Subjective Subjective: S:Complained of generalized itching after getting dilaudid. No rash, no sob , no wheezing. No other complaints. Medical record was reviewed. O:VSS. Not in distress. LUNGS:Normal breathing pattern. SKIN: No rash. A:Allergic reaction to dilaudid. P:benadryl 25 mg IV x 1. Objective - Vital Signs/Intake and Output Vital Signs (last 24 hours): Temp Pulse Resp BP Pulse Ox 98.2 F 60 20 126/72 93 L 12/25/17 16:00 12/25/17 16:00 12/25/17 16:00 12/25/17 16:00 12/25/17 16:00 Intake and Output: 12/25/17 12/26/17 18:59 06:59 Intake Total 1200 0 Balance 1200 0 - Medications Medications: Current Medications Diphenhydramine HCl (Benadryl) 25 mg IVP STAT STA Stop: 12/25/17 21:08 Hydromorphone HCl (Dilaudid) 1 mg IVP Q4H PRN PRN Reason: Pain, moderate (4-7) Last Admin: 12/25/17 19:49 Dose: 1 mg Sodium Chloride (Sodium Chloride 0.9%) 1,000 mls @ 100 mls/hr IV .Q10H VI Last Admin: 12/25/17 00:05 Dose: 100 mls/hr Ondansetron HCl (Zofran Inj) 4 mg IVP Q6H PRN PRN Reason: Nausea/Vomiting Last Admin: 12/25/17 19:49 Dose: 4 mg - Labs Labs: 12/25/17 06:30 12/25/17 06:30 PT 10.1 SECONDS (9.4-12.5) 12/24/17 16:25 INR 0.89 (0.93-1.08) L 12/24/17 16:25 APTT 28.4 Seconds (25.1-36.5) 12/24/17 16:25
--- NOTE | 2017-12-26 05:36 | HP ---
CHIEF COMPLAINT: Abdominal pain. HISTORY OF PRESENT ILLNESS: This is a 67-year-old woman, who is many years status post gastric bypass surgery, who presents to the ER because of abdominal pain. She was diagnosed with peptic ulcer disease few years back, had an endoscopy with Dr. Zamarripa, had a revision of her gastric bypass done by her bariatric surgeon in March 2017, then was hospitalized with bowel obstruction some 7 weeks ago, which was treated conservatively. She now comes to the emergency room because of sudden onset abdominal pain. CT scan showed signs of bowel obstruction. She was seen by surgery as well as GI. PAST MEDICAL HISTORY: Significant for gastric bypass surgery as mentioned above after which she developed stricture, treated with dilatation and then revision surgery by her bariatric surgeon. She also is status post cholecystectomy. SOCIAL HISTORY: She does not smoke, does not drink alcohol. She lives alone, has 2 daughters who are close to her, living in . CURRENT MEDICATIONS: Include proton pump inhibitor and rarely takes Xanax. REVIEW OF SYSTEMS: Multiple point review of systems is negative for any other organ systems that are reviewed. PHYSICAL EXAMINATION: GENERAL: The patient was seen this morning in room 568, bed 1, resting comfortably in bed, able to speak clearly, in no acute distress, but for some moderate abdominal pain. IV fluids are infusing. There is no Jung or nasogastric tube in place. HEENT: Head and neck is unremarkable. Conjunctivae pink. Mucous membranes are moist. NECK: Supple without masses. LUNGS: Clear. HEART: Regular, not tachycardic. ABDOMEN: Soft, somewhat tender, somewhat bloated and distended. EXTREMITIES: Show no edema. IMPRESSION: Small bowel obstruction in a 67-year-old woman with a history of bowel obstruction and history of gastric bypass surgery, who is status post cholecystectomy. PLAN: We will follow the lead of Surgery and Gastroenterology. Right now she is comfortable without an NG tube in place for suction and decompression and therefore we will follow inputs from GI. Continue IV fluids now, monitor morning labs. Lew Foster MD
[2017-12-26] MEDS ORDERED: Sodium Chloride 0.9% 1,000 ML IV SCH (05:37)
[2017-12-26 07:20] LABS: BASO # 0.02 K/mm3 (0.0-2.0); BASO % 0.5 % (0.0-3.0); EOS # 0.1 (0.0-0.7); EOS % 1.6 % (1.5-5.0); GRAN # 2.79 (1.4-6.5); GRAN % 75.9 % (50.0-68.0); HEMOGLOBIN 10.5 g/dL (12.0-16.0); LYMPH # 0.6 (1.2-3.4); LYMPH % 16.8 % (22.0-35.0); MEAN CELL VOLUME 95.7 fl (80.0-105.0); MEAN CORPUSCULAR HGB CONC 31.3 g/dl (31.0-37.0); MEAN PLATELET VOLUME 10.7 fl (7.0-11.0); MONO # 0.2 (0.1-0.6); MONO % 5.2 % (1.0-6.0); RBC 3.5 10^6/uL (3.5-6.1); RED CELL DISTRIBUTION WIDTH 13.2 % (11.5-14.5); WHITE BLOOD COUNT 3.7 10^3/ul (4.5-11.0)
[2017-12-26 07:45] LABS: ALB/GLOB RATIO 1.5 (1.1-1.8); ALT/SGPT 35 U/L (7-56); AST/SGOT 44 U/L (14-36); BLOOD UREA NITROGEN 9 mg/dL (7-21); CALCIUM 8.7 mg/dL (8.4-10.5); GFR AFRICAN-AMERICAN > 60; GFR NON-AFRICAN AMERICAN > 60
[2017-12-26 08:00] VITALS: BP 139/58; PULSE 64; TEMP 95.7; O2SAT 96
--- NOTE | 2017-12-26 09:14 | CP.PCM.PN ---
Subjective - Date & Time of Evaluation Date of Evaluation: 12/26/17 Time of Evaluation: 09:07 - Subjective Subjective: GENERAL SURGERY PROGRESS NOTE FOR DR. CHANDLER Patient has been seen and examined. No overnight events reported. Patient has flatus and normal NBNB bowel movement this morning. She tolerated her liquid diet. Her abdominal pain has improved to a 4/10 from a 6/10 yesterday. Objective - Vital Signs/Intake and Output Vital Signs (last 24 hours): Temp Pulse Resp BP Pulse Ox 95.7 F L 64 20 139/58 L 96 12/26/17 07:59 12/26/17 07:59 12/26/17 07:59 12/26/17 07:59 12/26/17 07:59 Intake and Output: 12/26/17 12/26/17 06:59 18:59 Intake Total 0 Balance 0 - Medications Medications: Current Medications Hydromorphone HCl (Dilaudid) 1 mg IVP Q4H PRN PRN Reason: Pain, moderate (4-7) Last Admin: 12/26/17 05:10 Dose: 1 mg Sodium Chloride (Sodium Chloride 0.9%) 1,000 mls @ 50 mls/hr IV .Q20H VI Last Admin: 12/26/17 05:46 Dose: 50 mls/hr Ondansetron HCl (Zofran Inj) 4 mg IVP Q6H PRN PRN Reason: Nausea/Vomiting Last Admin: 12/26/17 05:10 Dose: 4 mg Pantoprazole Sodium (Protonix Ec Tab) 40 mg PO BID VI - Labs Labs: 12/26/17 06:45 12/26/17 06:45 PT 10.1 SECONDS (9.4-12.5) 12/24/17 16:25 INR 0.89 (0.93-1.08) L 12/24/17 16:25 APTT 28.4 Seconds (25.1-36.5) 12/24/17 16:25 - Additional Findings Additional findings: - Constitutional Appears: Well, Non-toxic, In Acute Distress - Head Exam Head Exam: ATRAUMATIC, NORMOCEPHALIC - Eye Exam Eye Exam: Normal appearance - ENT Exam ENT Exam: Mucous Membranes Moist - Respiratory Exam Respiratory Exam: NORMAL BREATHING PATTERN. absent: Accessory Muscle Use, Respiratory Distress - Cardiovascular Exam Cardiovascular Exam: REGULAR RHYTHM - GI/Abdominal Exam GI & Abdominal Exam: Soft, Tenderness (epigastric, RLQ/LLQ (mild) ). absent: Distended, Firm, Rigid - Extremities Exam Extremities Exam: absent: Calf Tenderness, Pedal Edema, Tenderness - Neurological Exam Neurological Exam: Alert, Awake, Oriented x3 - Psychiatric Exam Psychiatric exam: Normal Affect, Normal Mood - Skin Skin Exam: Dry, Normal Color, Warm Assessment and Plan - Assessment and Plan (Free Text) Assessment: 67F hx gastric bypass complicated by previous anastomotic ulcer presents w/ recurrence of abd pain Abdomen X-ray (12/25): No Active Disease; No signs of obstruction. Plan: - Per GI: Rec. Elective O.P Endoscopy/Colonoscopy. - Protonix BID started by primary - Advanced to CLD this AM. - Advance to regular diet. - IVF. decreased to 50mls/hr. - serial abd exam - if pt vomits will place NGT - pain control and Anti-emetic PRN - Rec. DVT ppx - Patient should follow up with the surgeon who performed the gastric bypass for evaluation and management - Patient should follow up with GI (Dr. Zamarripa) for outpatient endoscopy/ colonoscopy. - No intervention from general surgery indicated at the present time. Please feel free to contact us if necessary. Further Recs as per Dr. Chayito Husain - PGY1
[2017-12-26] MEDS ORDERED: Non Formulary Medication (Lansoprazole [Prevacid] 30 MG) PO SCH (10:00)
[2017-12-26] MEDS ORDERED: Pantoprazole 40 mg EC Tab PO SCH (10:00)
--- NOTE | 2017-12-26 13:56 | CP.PCM.PN ---
Subjective - Date & Time of Evaluation Date of Evaluation: 12/26/17 Time of Evaluation: 11:10 - Subjective Subjective: Seen and examined at the bedside earlier today, chart review. Patient reported having bowel movement,initial bowel movement was formed, the second was loose, no bleeding reported. abdominal pain is improved. No nausea or vomiting. She still has the pain in epigastric area, although the pain is decreased to 4-5/ 10. Objective - Vital Signs/Intake and Output Vital Signs (last 24 hours): Temp Pulse Resp BP Pulse Ox 95.7 F L 64 20 139/58 L 96 12/26/17 07:59 12/26/17 07:59 12/26/17 07:59 12/26/17 07:59 12/26/17 07:59 Intake and Output: 12/26/17 12/26/17 06:59 18:59 Intake Total 0 1320 Balance 0 1320 - Medications Medications: Current Medications Hydromorphone HCl (Dilaudid) 1 mg IVP Q4H PRN PRN Reason: Pain, moderate (4-7) Last Admin: 12/26/17 10:15 Dose: 1 mg Sodium Chloride (Sodium Chloride 0.9%) 1,000 mls @ 50 mls/hr IV .Q20H VI Last Admin: 12/26/17 05:46 Dose: 50 mls/hr Ondansetron HCl (Zofran Inj) 4 mg IVP Q6H PRN PRN Reason: Nausea/Vomiting Last Admin: 12/26/17 05:10 Dose: 4 mg Pantoprazole Sodium (Protonix Ec Tab) 40 mg PO BID VI Last Admin: 12/26/17 10:15 Dose: 40 mg - Labs Labs: 12/26/17 06:45 12/26/17 06:45 PT 10.1 SECONDS (9.4-12.5) 12/24/17 16:25 INR 0.89 (0.93-1.08) L 12/24/17 16:25 APTT 28.4 Seconds (25.1-36.5) 12/24/17 16:25 - Constitutional Appears: No Acute Distress - Head Exam Head Exam: NORMOCEPHALIC - Eye Exam Eye Exam: Normal appearance. absent: Scleral icterus - ENT Exam ENT Exam: Mucous Membranes Moist - Neck Exam Neck Exam: Normal Inspection - Respiratory Exam Respiratory Exam: NORMAL BREATHING PATTERN. absent: Respiratory Distress - Cardiovascular Exam Cardiovascular Exam: +S1, +S2 - GI/Abdominal Exam GI & Abdominal Exam: Soft, Tenderness (epigastric), Normal Bowel Sounds. 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 Patient upon discharge will see her previous surgeon at [facility]. Patient will be given copies of her previous radiological exams. Seen and discussed with Dr. Zamarripa.
== END 2017-12-26 13:55 | disposition home or self-care (01) | DRG 389 ==
LOC: ED 15:12 → ERH 21:37 → 5RNO 23:26
PROVIDERS: ADMIT Internal Medicine; ATTEND Internal Medicine
DX: K56.600 Partial intestinal obstruction, unspecified as to cause (principal); K92.0 Hematemesis; L29.9 Pruritus, unspecified; T40.2X5A Adverse effect of other opioids, initial encounter; F51.02 Adjustment insomnia; Z87.11 Personal history of peptic ulcer disease; Z87.891 Personal history of nicotine dependence; Z90.49 Acquired absence of other specified parts of digestive tract; Z90.710 Acquired absence of both cervix and uterus; Z96.651 Presence of right artificial knee joint; Z98.84 Bariatric surgery status; D64.9 Anemia, unspecified; R40.2412 Glasgow coma scale score 13-15, at arrival to emergency department